=== PATIENT | male | born 1990 | race Caucasian/White ===

== ENCOUNTER → 2018-11-06 18:51 | Outpatient (CLI) | payer BC, SELFPAY ==
--- NOTE | 2018-11-06 18:56 | DI.RAD.S_ITS ---
PROCEDURE: XR ANKLE LT MIN 3V INDICATIONS: Left ankle injury TECHNIQUE: 3 views of the ankle were acquired. COMPARISON: None. FINDINGS: Bones: No fractures or dislocations. Ankle mortise is normally aligned. No suspicious bony lesions. Soft tissues: Lateral soft tissue swelling IMPRESSION: No fracture identified. Lateral soft tissue swelling Dictated by: Zain Pedroza M.D. on 11/06/2018 at 19:16 Approved by: Zain Pedroza M.D. on 11/06/2018 at 19:16
== END ==
PROVIDERS: PCP Ophthalmology; Visit Provider Physician Assistant
DX: S99.912A Unspecified injury of left ankle, initial encounter (principal); M79.89 Other specified soft tissue disorders
CPT/HCPCS: 73610

== ENCOUNTER → 2019-03-05 13:14 | Outpatient (CLI) | payer OTHER, SELFPAY ==
--- NOTE | 2019-03-05 | DI.RAD.S_ITS ---
PROCEDURE: FL SHOULDER INJECTION MR/CT RT INDICATIONS: Superior glenoid labrum lesion of right shoulder, TECHNIQUE: The indications, alternatives, benefits, risks, and complications of the procedure were explained to the patient. Written informed consent was obtained and placed in the chart. The shoulder was examined fluoroscopically and a site for needle placement chosen for entry into the glenohumeral joint from an anterior approach. The skin was prepped and draped in a sterile fashion, and 1% lidocaine infiltrated from skin down to joint capsule. A spinal needle was inserted into the glenohumeral joint, and a small amount of iodinated contrast media injected to confirm intra-articular placement of the needle tip. This was followed by approximately 12 mL dilute solution of a gadolinium containing MR contrast agent. The needle was removed and a dressing was applied. The patient was given postprocedural instructions and sent to the MR suite for MR imaging. FINDINGS: A single fluoroscopic spot image demonstrates intra-articular location of injected iodinated contrast. IMPRESSION: Successful fluoroscopically guided administration of dilute Gadolinium solution into the shoulder joint for MR arthrogram. Dictated by: Zain Pedroza M.D. on 03/05/2019 at 15:37 Approved by: Zain Pedroza M.D. on 03/05/2019 at 15:37
--- NOTE | 2019-03-05 | DI.MRI.S_ITS ---
PROCEDURE: MR SHOULDER RT W CON INDICATIONS: Superior glenoid labrum lesion of right shoulder, Right shoulder pain TECHNIQUE: After the administration of 12 mL of dilute intra-articular Gadolinium contrast, oblique coronal T1 and T2 spin echo with fat saturation, oblique sagittal T1 spin echo with and without fat saturation, oblique sagittal T2 fast spin echo with fat saturation, axial T1 spin echo with fat saturation through the shoulder. COMPARISON: Outside Film, MR, MR SHOULDER RIGHT WITHOUT CONTRAST, 05/30/2018, 10:00. Outside Film, MR, MR SHOULDER RIGHT WITHOUT CONTRAST, 10/02/2018, 9:11. FINDINGS: Image quality: Excellent. Rotator cuff: Low grade bursal sided partial thickness tear of the supraspinatus and infraspinatus tendon, probably less than 50% of tendon thickness. The subscapularis and teres minor tendons appear grossly intact. No atrophy of the rotator cuff musculature although there is mild fatty infiltration of the supraspinatus and infraspinatus muscles. Bones and bursae: No bone marrow contusions or fractures. Moderate acromioclavicular joint degeneration. The acromion demonstrates conventional anatomy, without an os acromiale. Capsule and soft tissues: There is mild surface irregularity of the superior labrum and posterior labrum, which probably postoperative in nature, related to prior debridement. Previously seen small posterior para-labral cyst is no longer visualized. No definite intra-substance gadolinium signal intensity within labrum to suggest recurrent labral tear. The long head of the biceps tendon demonstrates normal location and morphology. The rotator interval appears normal, without fibrosis. The coracohumeral ligament is of normal thickness. No intra-articular bodies. IMPRESSION: Mild surface irregularity involving the superior and posterior labrum which is thought to be postsurgical in nature. No definite intrasubstance gadolinium signal intensity to suggest recurrent labral tear. Low-grade bursal sided partial-thickness tear of the supraspinatus and infraspinatus tendons. Of note, this appears more conspicuous/progressed since 10/02/18. Dictated by: Zain Pedroza M.D. on 03/05/2019 at 15:16 Approved by: Zain Pedroza M.D. on 03/05/2019 at 15:33
== END ==
PROVIDERS: PCP Ophthalmology; Visit Provider Orthopaedic Surgery
DX: S43.431A Superior glenoid labrum lesion of right shoulder, initial encounter (principal); M75.111 Incomplete rotator cuff tear or rupture of right shoulder, not specified as traumatic; M25.511 Pain in right shoulder
CPT/HCPCS: 23350; 73222; 77002

== ENCOUNTER 2019-06-09 15:30 | Emergency (ER) | payer BC, SELFPAY ==
[2019-06-09 15:50] VITALS: BP 183/124; PULSE 92; RESP 18; TEMP 37.2; O2SAT 98; BMI 39.9
[2019-06-09] MEDS: ONDANSETRON 4 MG ODT SL ×2 (16:05→18:03)
[2019-06-09 16:37] LABS: Add Manual Diff / Slide Review NO; Basophils Absolute Auto 0 /uL (0-100); Eosinophils Absolute Auto 200 /uL (0-450); Eosinophils Percent Auto 4.2 % (2-4); Hematocrit 45.2 % (41-53); Hemoglobin 16.1 g/dL (13.5-17.5); Lymphocytes Absolute Auto 1700 /uL (1100-4500); Lymphocytes Percent Auto 34.5 % (25-40); Mean Corpuscular HGB Conc 35.6 % (30-36); Mean Corpuscular Hemoglobin 32.1 PG (26-34); Mean Corpuscular Volume 90.3 fL (80-100); Monocytes Absolute Auto 300 /uL (0-900); Monocytes Percent Auto 6.9 % (3-14); Neutrophils Absolute Auto 2600 /uL (1500-7000); Neutrophils Percent Auto 53.4 % (50-75); Platelet Count 262 X10^3/uL (150-400); Red Blood Cell Count 5.01 X10^6/uL (4.5-5.9); Red Cell Distribution Width 13.1 % (11.6-14.8); White Blood Cell Count 4.9 X10^3/uL (4.5-11.0)
[2019-06-09 16:56] LABS: Alanine Aminotransferase 124 IU/L (21-72); Albumin 4.1 g/dL (3.5-5.0); Albumin Globulin Ratio 1.3 (1.0-2.8); Alkaline Phosphatase 59 U/L (38-126); Aspartate Aminotransferase 54 IU/L (17-59); BUN Creatinine Ratio 12.5 (6-22); Bilirubin Total 0.4 mg/dL (0.2-1.3); Blood Urea Nitrogen 10 mg/dL (9-20); Carbon Dioxide 23 mmol/L (22-32); Chloride 106 mmol/L (98-107); Estimated Glomerular Filt Rate > 60.0 mL/min (>60); Globulin 3.2 g/dL (1.7-4.1); Glucose 104 mg/dL (70-100); HEMOLYSIS 25 (0-50); Potassium 3.6 mmol/L (3.4-5.1); Sodium 139 mmol/L (137-145); Total Protein 7.3 g/dL (6.3-8.2)
[2019-06-09] MEDS: KETOROLAC 60 MG/2 ML VIAL IM (17:56)
[2019-06-09] MEDS: CLINDAMYCIN 150 MG CAPSULE 300 MG PO (18:09)
[2019-06-09] MEDS: HYDROCODONE/ACET 5/325 TABLET 1 TAB PO (18:09)
[2019-06-09] MEDS: ONDANSETRON 4 MG ODT PREPACK 1 BOTTLE MISC (19:14)
[2019-06-09] MEDS: KETOROLAC 10MG PREPACK 1 BOTTLE MISC (19:15)
[2019-06-09] MEDS: HYDROCODONE/ACET 5/325 PREPACK 1 BOTTLE MISC (19:15)
[2019-06-09 19:20] VITALS: BP 164/105; PULSE 79; RESP 16; O2SAT 99
--- NOTE | 2019-06-09 20:14 | ED_ITS ---
HPI - Dental/Oral <GUTIERREZ Mar - Last Filed: 06/09/19 20:25> General Chief complaint: Dental/Oral Stated complaint: Tooth Abcess getting worse and spreading, headache Time Seen by Provider: 06/09/19 17:23 Source: patient Mode of arrival: Ambulatory Limitations: no limitations History of Present Illness HPI Narrative: The patient is a 29-year-old male current smoker with history of hypertension who presents for chief complaint of not improving dental abscess. He has been on amoxicillin twice a day since Monday. He denies any fevers. He states that the taste in pain is making him nauseous. He has not followed up with primary care provider. He states he amoxicillin was given to him at an urgent care. He has taken Motrin this morning for the pain and is gargling of hydrogen peroxide. Related Data Previous Rx's Medication Instructions Recorded cyclobenzaprine 10 mg tablet 10 mg PO TID PRN #60 tab 10/04/18 losartan 25 mg tablet 25 mg PO DAILY #90 tab 11/06/18 clindamycin HCl 300 mg PO QID #40 cap 06/09/19 hydrocodone-acetaminophen [[place]] 1 tab PO Q4-6H PRN #5 tab 06/09/19 ketorolac 10 mg PO TID PRN #20 tab 06/09/19 ondansetron 4 mg PO Q6H PRN #20 tab 06/09/19 Allergies Allergy/AdvReac Type Severity Reaction Status Date / Time Iodinated Contrast- Oral and Allergy Mild Verified 11/06/18 20:18 IV Dye Review of Systems <KARLOS Mar - Last Filed: 06/09/19 20:25> Review of Systems Narrative: GENERAL: Denies chills, fatigue, malaise, fever, sweats. HEENT: See HPI RESPIRATORY: Denies dyspnea, cough, wheezing, hemoptysis, sputum. CARDIOVASCULAR: Denies chest pain, palpitations, orthopnea, edema, GASTROINTESTINAL: See HPI : Denies dysuria, frequency, incontinence, hematuria, urinary retention. MUSCULOSKELETAL: denies weakness, joint pain, or bony pain SKIN: Denies rash, skin lesions, or other NEUROLOGIC: Denies weakness, headache, numbness, change in speech, confusion, seizures, incoordination. PSYCHIATRIC: No concerning psychosocial issues. 12 point review of systems is negative except for those stated above PFSH <GUTIERREZ Mar - Last Filed: 06/09/19 20:25> Social History Smoking Status: Current every day smoker Social History Smoking Status: Current every day smoker Exam <GUTIERREZ Mar - Last Filed: 06/09/19 20:25> Narrative Exam Narrative: GENERAL: This is a well-nourished, well-developed patient, appears uncomfortable HEAD: Atraumatic. Normocephalic. No temporal or scalp tenderness. EYES: Pupils equal round and reactive. Extraocular motions intact. No scleral icterus. No injection or drainage. ENT: Poor dentition noted. Erythema noted coming from broken right upper molar. No palpable abscess. Nose without bleeding, purulent drainage or septal hematoma. Throat without erythema, tonsillar hypertrophy or exudate. Uvula midline. Airway patent. NECK: Trachea midline. No JVD or lymphadenopathy. Supple, nontender, no meningeal signs. CARDIOVASCULAR: Regular rate and rhythm without murmurs, gallops, or rubs. RESPIRATORY: Clear to auscultation. Breath sounds equal bilaterally. No wheezes, rales, or rhonchi. No cough. No increased respiratory effort. No accessory muscle use. GASTROINTESTINAL: Abdomen soft, non-tender, nondistended. No hepato- splenomegaly, or palpable masses. No guarding. Active bowel sounds all 4 quadrants. EXTREMITIES: No clubbing, cyanosis, or edema. No joint tenderness, effusion, or edema noted. BACK: Nontender without deformity or crepitance. No flank tenderness. NEURO: AOx3. SKIN: No rash or erythema. No erythema or palpable abscess on face. Initial Vital Signs Initial Vital Signs: Vital Signs Temperature 98.9 F 06/09/19 15:50 Pulse Rate 92 H 06/09/19 15:50 Respiratory Rate 18 06/09/19 15:50 Blood Pressure 183/124 H 06/09/19 15:50 Pulse Oximetry 98 06/09/19 15:50 <Fredy Smith DO - Last Filed: 06/10/19 20:00> Initial Vital Signs Initial Vital Signs: Vital Signs Temperature 98.9 F 06/09/19 15:50 Pulse Rate 92 H 06/09/19 15:50 Respiratory Rate 18 06/09/19 15:50 Blood Pressure 183/124 H 06/09/19 15:50 Pulse Oximetry 98 06/09/19 15:50 Course <Denisejessenia ParedesMITCHEL bajwaP-BC - Last Filed: 06/09/19 20:25> Orders Ordered: Discontinued Medications Hydrocodone Bitart/Acetaminophen ([place] 5/325) 1 tab PO NOW ONE Stop: 06/09/19 17:35 Last Admin: 06/09/19 18:09 Dose: 1 tab Documented by: CÉSAR Hydrocodone Bitart/Acetaminophen (Vicodin Prepack) 1 bottle MISC SEEINSTR ONE Stop: 06/09/19 18:41 Last Admin: 06/09/19 19:15 Dose: 1 bottle Documented by: CÉSAR Clindamycin HCl (Cleocin) 300 mg PO NOW ONE Stop: 06/09/19 17:35 Last Admin: 06/09/19 18:09 Dose: 300 mg Documented by: CÉSAR Ketorolac Tromethamine (Toradol) 60 mg IM NOW ONE Stop: 06/09/19 17:35 Last Admin: 06/09/19 17:56 Dose: 60 mg Documented by: CÉSAR Ketorolac Tromethamine (Toradol 10mg Prepack) 1 bottle MISC SEEINSTR ONE Stop: 06/09/19 18:41 Last Admin: 06/09/19 19:15 Dose: 1 bottle Documented by: CÉSAR Ondansetron HCl (Zofran Odt) 4 mg SL NOW ONE Stop: 06/09/19 16:03 Last Admin: 06/09/19 16:05 Dose: 4 mg Documented by: ODELL Ondansetron HCl (Zofran Odt) 4 mg SL NOW ONE Stop: 06/09/19 17:59 Last Admin: 06/09/19 18:03 Dose: 4 mg Documented by: CÉSAR Ondansetron HCl (Zofran Odt Prepack) 1 bottle MISC SEEINSTR ONE Stop: 06/09/19 18:41 Last Admin: 06/09/19 19:14 Dose: 1 bottle Documented by: CÉSAR Vital Signs Vital signs: Vital Signs - 8 hr 06/09/19 15:50 06/09/19 19:20 Temperature 98.9 F Pulse Rate 92 H 79 Respiratory Rate 18 16 Blood Pressure 183/124 H Blood Pressure [Right Arm] 164/105 H Pulse Oximetry 98 99 <Fredy Smith, DO - Last Filed: 06/10/19 20:00> Orders Ordered: Discontinued Medications Hydrocodone Bitart/Acetaminophen ([place] 5/325) 1 tab PO NOW ONE Stop: 06/09/19 17:35 Last Admin: 06/09/19 18:09 Dose: 1 tab Documented by: CÉSAR Hydrocodone Bitart/Acetaminophen (Vicodin Prepack) 1 bottle MISC SEEINSTR ONE Stop: 06/09/19 18:41 Last Admin: 06/09/19 19:15 Dose: 1 bottle Documented by: CÉSAR Clindamycin HCl (Cleocin) 300 mg PO NOW ONE Stop: 06/09/19 17:35 Last Admin: 06/09/19 18:09 Dose: 300 mg Documented by: CÉSAR Ketorolac Tromethamine (Toradol) 60 mg IM NOW ONE Stop: 06/09/19 17:35 Last Admin: 06/09/19 17:56 Dose: 60 mg Documented by: CÉSAR Ketorolac Tromethamine (Toradol 10mg Prepack) 1 bottle MISC SEEINSTR ONE Stop: 06/09/19 18:41 Last Admin: 06/09/19 19:15 Dose: 1 bottle Documented by: CÉSAR Ondansetron HCl (Zofran Odt) 4 mg SL NOW ONE Stop: 06/09/19 16:03 Last Admin: 06/09/19 16:05 Dose: 4 mg Documented by: ODELL Ondansetron HCl (Zofran Odt) 4 mg SL NOW ONE Stop: 06/09/19 17:59 Last Admin: 06/09/19 18:03 Dose: 4 mg Documented by: CÉSAR Ondansetron HCl (Zofran Odt Prepack) 1 bottle MISC SEEINSTR ONE Stop: 06/09/19 18:41 Last Admin: 06/09/19 19:14 Dose: 1 bottle Documented by: CÉSAR Vital Signs Vital signs: Vital Signs - 8 hr 06/09/19 15:50 06/09/19 19:20 Temperature 98.9 F Pulse Rate 92 H 79 Respiratory Rate 18 16 Blood Pressure 183/124 H Blood Pressure [Right Arm] 164/105 H Pulse Oximetry 98 99 MDM - Dental/Oral <Denise YousifMITCHELP- - Last Filed: 06/09/19 20:25> Lab Data Result diagrams: 06/09/19 16:10 06/09/19 16:10 Labs: Lab Results 06/09/19 06/09/19 Range/Units 16:10 16:10 WBC 4.9 (4.5-11.0) X10^3/uL RBC 5.01 (4.5-5.9) X10^6/uL Hgb 16.1 (13.5-17.5) g/dL Hct 45.2 (41-53) % MCV 90.3 (80-100) fL MCH 32.1 (26-34) PG MCHC 35.6 (30-36) % RDW 13.1 (11.6-14.8) % Plt Count 262 (150-400) X10^3/uL Neut % (Auto) 53.4 (50-75) % Lymph % (Auto) 34.5 (25-40) % Atkinson % (Auto) 6.9 (3-14) % Eos % (Auto) 4.2 H (2-4) % Baso % (Auto) 1.0 (0-2) % Neut # (Auto) 2600 (5680-8961) /uL Lymph # (Auto) 1700 (3344-7192) /uL Atkinson # (Auto) 300 (0-900) /uL Eos # (Auto) 200 (0-450) /uL Baso # (Auto) 0 (0-100) /uL Sodium 139 (137-145) mmol/L Potassium 3.6 (3.4-5.1) mmol/L Chloride 106 (98-107) mmol/L Carbon Dioxide 23 (22-32) mmol/L BUN 10 (9-20) mg/dL Creatinine 0.80 (0.66-1.25) mg/dL Estimated GFR > 60.0 (>60) mL/min BUN/Creatinine Ratio 12.5 (6-22) Glucose 104 H (70-100) mg/dL Calcium 9.0 (8.4-10.2) mg/dL Total Bilirubin 0.4 (0.2-1.3) mg/dL AST 54 (17-59) IU/L ALT 124 H (21-72) IU/L Alkaline Phosphatase 59 (38-126) U/L Total Protein 7.3 (6.3-8.2) g/dL Albumin 4.1 (3.5-5.0) g/dL Globulin 3.2 (1.7-4.1) g/dL Albumin/Globulin Ratio 1.3 (1.0-2.8) [facility] Narrative Medical decision making narrative: The patient is a 29-year-old male who presents with a chief complaint of a dental abscess that is not improving with amoxicillin. His exam correlates. He has no leukocytosis on labs, is afebrile and has no apparent signs of systemic illness. He was treated with Zofran in the emergency department. I did elect to switch him to clindamycin and given p rescription of of Toradol, with strict instructions to not combine with Motrin Aleve or any other NSAIDs. Discussed use of [place] for pain. Discussed constipation and sedation. Encouraged the patient to follow up with PCP or dentist. Encouraged follow-up with dentist as soon as possible. Patient has no questions or concerns upon discharge. Discussed going back to the ER for fever, signs of systemic illness. Patient has no questions or concerns upon discharge and states understanding of return precautions as well as follow-up care. <Fredy Smith DO - Last Filed: 06/10/19 20:00> Lab Data Labs: Lab Results 06/09/19 06/09/19 Range/Units 16:10 16:10 WBC 4.9 (4.5-11.0) X10^3/uL RBC 5.01 (4.5-5.9) X10^6/uL Hgb 16.1 (13.5-17.5) g/dL Hct 45.2 (41-53) % MCV 90.3 (80-100) fL MCH 32.1 (26-34) PG MCHC 35.6 (30-36) % RDW 13.1 (11.6-14.8) % Plt Count 262 (150-400) X10^3/uL Neut % (Auto) 53.4 (50-75) % Lymph % (Auto) 34.5 (25-40) % Atkinson % (Auto) 6.9 (3-14) % Eos % (Auto) 4.2 H (2-4) % Baso % (Auto) 1.0 (0-2) % Neut # (Auto) 2600 (8704-7093) /uL Lymph # (Auto) 1700 (5558-7645) /uL Atkinson # (Auto) 300 (0-900) /uL Eos # (Auto) 200 (0-450) /uL Baso # (Auto) 0 (0-100) /uL Sodium 139 (137-145) mmol/L Potassium 3.6 (3.4-5.1) mmol/L Chloride 106 (98-107) mmol/L Carbon Dioxide 23 (22-32) mmol/L BUN 10 (9-20) mg/dL Creatinine 0.80 (0.66-1.25) mg/dL Estimated GFR > 60.0 (>60) mL/min BUN/Creatinine Ratio 12.5 (6-22) Glucose 104 H (70-100) mg/dL Calcium 9.0 (8.4-10.2) mg/dL Total Bilirubin 0.4 (0.2-1.3) mg/dL AST 54 (17-59) IU/L ALT 124 H (21-72) IU/L Alkaline Phosphatase 59 (38-126) U/L Total Protein 7.3 (6.3-8.2) g/dL Albumin 4.1 (3.5-5.0) g/dL Globulin 3.2 (1.7-4.1) g/dL Albumin/Globulin Ratio 1.3 (1.0-2.8) Discharge Plan Departure Patient Disposition: Home Clinical Impression: Abscess, dental Discharge Date/Time: 06/09/19 19:21 Instructions: Tooth Abscess Activity Restrictions/Additional Instructions: High have started you on another antibiotic for your dental infection. Do not combine the ketorolac with any other NSAIDs such as Aleve or Motrin. Be aware that [place] can be constipating and sedating. Please follow up with a dentist as soon as possible. I have given you a work note in case it is needed. Please come back to emergency department for any acute concerns such as high fever or inability keep down fluids Prescriptions: New ketorolac 10 mg tablet 10 mg PO TID PRN (Reason: pain) Qty: 20 RF: 0 hydrocodone-acetaminophen [[place]] 5-325 mg tablet 1 tab PO Q4-6H PRN (Reason: pain) Qty: 5 RF: 0 clindamycin HCl 300 mg capsule 300 mg PO QID Qty: 40 RF: 0 ondansetron 4 mg tablet,disintegrating 4 mg PO Q6H PRN (Reason: nausea and vomiting) Qty: 20 RF: 0 No Action losartan 25 mg tablet 25 mg PO DAILY Qty: 90 RF: 0 cyclobenzaprine 10 mg tablet 10 mg PO TID PRN (Reason: muscle spasm) Qty: 60 RF: 1 Referrals: David Garzon [Primary Care Provider] - Stand Alone Forms: Work Release Note
== END 2019-06-09 19:21 | disposition home or self-care (01) ==
PROVIDERS: Emergency Provider Nurse Practitioner Family; PCP Ophthalmology
DX: K04.7 Periapical abscess without sinus (principal)
CPT/HCPCS: 36415; 80053; 85025; 96372; 99282; 99284; J1885

== ENCOUNTER 2019-09-16 14:47 | Emergency (ER) | payer BC, SELFPAY ==
[2019-09-16 15:02] VITALS: BP 164/108; PULSE 102; RESP 20; TEMP 36.2; O2SAT 99; BMI 36.6
[2019-09-16] MEDS: IBUPROFEN 400 MG TABLET 800 MG PO (15:11)
[2019-09-16 17:26] VITALS: TEMP 36.3
[2019-09-16 17:58] LABS: Add Manual Diff / Slide Review NO; Basophils Absolute Auto 0 /uL (0-100); Basophils Percent Auto 0.8 % (0-2); Eosinophils Absolute Auto 200 /uL (0-450); Eosinophils Percent Auto 4.9 % (2-4); Hematocrit 49.7 % (41-53); Hemoglobin 17.5 g/dL (13.5-17.5); Lymphocytes Absolute Auto 1500 /uL (1100-4500); Mean Corpuscular HGB Conc 35.2 % (30-36); Mean Corpuscular Hemoglobin 31.9 PG (26-34); Mean Corpuscular Volume 90.4 fL (80-100); Monocytes Absolute Auto 300 /uL (0-900); Monocytes Percent Auto 8.8 % (3-14); Neutrophils Absolute Auto 1900 /uL (1500-7000); Neutrophils Percent Auto 47.5 % (50-75); Platelet Count 272 X10^3/uL (150-400); Red Blood Cell Count 5.49 X10^6/uL (4.5-5.9); Red Cell Distribution Width 13.1 % (11.6-14.8); White Blood Cell Count 3.9 X10^3/uL (4.5-11.0)
[2019-09-16 18:04] LABS: Prothrombin Time 11.9 SECONDS (10.1-12.7)
[2019-09-16] MEDS: SODIUM CHLORIDE 0.9% 1,000 ML 1000 ML IV (18:04)
[2019-09-16 18:07] LABS: PTT Partial Thromboplastin Tim 30 SECONDS (26.4-36.2)
[2019-09-16 18:11] LABS: Alanine Aminotransferase 122 IU/L (<50); Albumin 4.7 g/dL (3.5-5.0); Albumin Globulin Ratio 1.4 (1.0-2.8); Alkaline Phosphatase 51 U/L (38-126); Aspartate Aminotransferase 67 IU/L (17-59); BUN Creatinine Ratio 15.6 (6-22); Bilirubin Total 0.9 mg/dL (0.2-1.3); Blood Urea Nitrogen 14 mg/dL (9-20); Calcium 9.5 mg/dL (8.4-10.2); Carbon Dioxide 25 mmol/L (22-32); Chloride 103 mmol/L (98-107); Estimated Glomerular Filt Rate > 60.0 mL/min (>60); Globulin 3.4 g/dL (1.7-4.1); Glucose 92 mg/dL (70-100); HEMOLYSIS < 15 (0-50); Lipase 93 U/L (23-300); Potassium 3.9 mmol/L (3.4-5.1); Sodium 140 mmol/L (137-145); Total Protein 8.1 g/dL (6.3-8.2)
[2019-09-16 18:12] LABS: Lactate (Lactic Acid) 1.4 mmol/L (0.7-2.1)
--- NOTE | 2019-09-16 18:14 | ED_ITS ---
HPI - Fever <GISSELL Rodriguez - Last Filed: 09/16/19 21:11> General Chief Complaint: Fever Stated Complaint: Influenza B, neck pain, no energy Time Seen by Provider: 09/16/19 17:18 Source: patient Mode of arrival: Ambulatory Limitations: no limitations History of Present Illness HPI Narrative: 29-year-old male presents to the emergency department complaining of ongoing neck pain and headache for 2 days, he also reports 2 episodes of dark tarry stools. He states he was recently diagnosed with influenza B before and has been drinking fluids and taking ibuprofen to help with the symptoms. He went to establish care with his primary care provider today and was directed to go to the ER due to symptoms. He states he has had nausea and vomiting when he was initially diagnosed with influenza but that has subsided over the past few days. Patient states he has intermittent epigastric pain, he was diagnosed with elevated liver enzymes when he was initially in the ER and t old to not take any more Tylenol at this time. Patient also reports he has recently stopping his high blood pressure medication custody thinks that it was not doing anything. However, he saw his primary care provider today and was started on losartan which he has not taken at this time. Related Data Home Medications Medication Instructions Recorded Confirmed lisinopril 10 mg PO DAILY 09/16/19 09/16/19 Previous Rx's Medication Instructions Recorded ondansetron 4 mg PO Q6H PRN #20 tab 06/09/19 omeprazole 20 mg PO BID 14 Days #28 cap 09/16/19 Allergies Allergy/AdvReac Type Severity Reaction Status Date / Time Iodinated Contrast Media Allergy Mild Verified 09/16/19 15:07 [Iodinated Contrast- Oral and IV Dye] Review of Systems <GISSELL Rodriguez - Last Filed: 09/16/19 21:11> Review of Systems Narrative: REVIEW OF SYSTEMS: GENERAL: Denies fever, chills, malaise, or wt. loss. HENT: No head trauma, sore throat, or dysphagia. EYES: No loss of vision, double vision, eye pain, or irritation. NECK: Reports neck pain, see HPI. CARDIOVASCULAR: No chest pain, palpitations, or orthopnea. RESPIRATORY: No shortness of breath or cough. GASTROINTESTINAL: Complains of 2 dark tarry stools, see HPI. GENITOURINARY: No flank pain, urinary incontinence, hesitancy, frequency, or dysuria. MUSCULOSKELETAL: No pain, weakness, or trauma. INTEGUMENTARY: No rash, lesions, or pruritus. NEURO: No numbness, tingling, memory loss, confusion, or headaches. PSYCH: No behavior or mood changes. Patient History <GISSELL Rodriguez - Last Filed: 09/16/19 21:11> Social History Smoking Status: Former smoker Smoking Status: Former smoker alcohol intake frequency: a few times a week Substance Use Type: does not use Exam <GISSELL Rodriguez - Last Filed: 09/16/19 21:11> Initial Vital Signs Initial Vital Signs: Vital Signs Temperature 97.1 F L 09/16/19 15:02 Pulse Rate 102 H 09/16/19 15:02 Respiratory Rate 20 09/16/19 15:02 Blood Pressure 164/108 H 09/16/19 15:02 Pulse Oximetry 99 09/16/19 15:02 PHYSICAL EXAMINATION: GENERAL: Well groomed, alert, and cooperative. Answers questions promptly and appropriately. Vital signs noted. HENT: Normocephalic, atraumatic. Hearing intact. Oral mucosa is pink and moist. Oropharynx without erythema. EYES: PERRLA, EOMIs, Conjunctiva pink, sclera white, no periorbital swelling. NECK: Tenderness to palpation of left sternal caught little mastoid, no spinal tenderness or deformities. Full range of motion of neck including full ext ension, flexion, and rotation without pain. CARDIOVASCULAR: S1 and S2 sounds normal. Regular rate and rhythm, no murmurs, clicks, or bruits. No pedal edema. RESPIRATORY: Normal respiratory rate, trachea midline, airway patent. No stridor, nasal flaring or accessory muscle use. Lungs are clear in all tello without wheeze, rhonchi, or crackles. GASTROINTESTINAL: Bowel sounds normoactive. Abdomen is soft, slight epigastric tenderness. No organomegaly, no palpable masses. RECTAL: No hemorrhoids palpated, guaiac positive for occult blood. GENITALURINARY: No flank tenderness. MUSCULOSKELETAL: Normal gait and coordination. Equal tone and mass bilaterally. EXTREMITIES: CMS intact, no pedal edema. SKIN: Warm, dry, soft, appropriate color for ethnicity. No lesions, rashes, or wounds. NEURO: Alert and Oriented X 3. Good coordination. No ataxia, or sensory deficits, or cognitive issues. PSYCH: Appropriate affect and mood. <Fredy Smith DO - Last Filed: 09/17/19 02:26> Initial Vital Signs Initial Vital Signs: Vital Signs Temperature 97.1 F L 09/16/19 15:02 Pulse Rate 102 H 09/16/19 15:02 Respiratory Rate 20 09/16/19 15:02 Blood Pressure 164/108 H 09/16/19 15:02 Pulse Oximetry 99 09/16/19 15:02 Course <GISSELL Rodriguez - Last Filed: 09/16/19 21:11> Course Course Narrative: Patient was given fluids and pantoprazole in the emergency department. He reported moderate improvement in symptoms. Patient was given ibuprofen in triage before further evaluation of GI bleeding. Orders Ordered: ED Orders 09/16/19 17:45 Complete Blood Count AUTO DIFF Stat Comprehensive Metabolic Panel Stat Lactate (Lactic Acid) Stat Lipase Stat Partial Thromboplastin Time Stat Procalcitonin Stat Prothrombin Time INR Stat 09/16/19 18:17 Blood Culture Stat 09/16/19 18:37 XR chest 1V Stat Discontinued Medications Acetaminophen (Tylenol) 975 mg PO NOW ONE Stop: 09/16/19 15:08 Sodium Chloride (Normal Saline 0.9%) 1,000 mls @ 1,000 mls/hr IV BOLUS ONE Stop: 09/16/19 18:24 Last Infusion: 09/16/19 20:00 Dose: 0 mls/hr Documented by: Admin: 09/16/19 18:04 Dose: 1,000 mls/hr Documented by: CÉSAR Ibuprofen (Advil) 800 mg PO NOW ONE Stop: 09/16/19 15:08 Last Admin: 09/16/19 15:11 Dose: 800 mg Documented by: JENNIFER Ondansetron HCl (Zofran) 4 mg IV NOW ONE Stop: 09/16/19 17:26 Last Admin: 09/16/19 20:30 Dose: Not Given Documented by: JENNIFER Pantoprazole Sodium (Protonix) 40 mg IV NOW ONE Stop: 09/16/19 18:30 Last Admin: 09/16/19 19:54 Dose: 40 mg Documented by: CÉSAR Consultations Consultation #1: Patient was staffed with Dr. Smith. Vital Signs Vital signs: Vital Signs - 8 hr 09/16/19 19:12 09/16/19 20:03 Pulse Rate 72 72 Respiratory Rate 18 20 Blood Pressure 168/116 H Blood Pressure [Right Arm] 160/113 H Pulse Oximetry 99 100 <Fredy Smith DO - Last Filed: 09/17/19 02:26> Orders Ordered: ED Orders 09/16/19 17:45 Complete Blood Count AUTO DIFF Stat Comprehensive Metabolic Panel Stat Lactate (Lactic Acid) Stat Lipase Stat Partial Thromboplastin Time Stat Procalcitonin Stat Prothrombin Time INR Stat 09/16/19 18:17 Blood Culture Stat 09/16/19 18:37 XR chest 1V Stat Discontinued Medications Acetaminophen (Tylenol) 975 mg PO NOW ONE Stop: 09/16/19 15:08 Sodium Chloride (Normal Saline 0.9%) 1,000 mls @ 1,000 mls/hr IV BOLUS ONE Stop: 09/16/19 18:24 Last Infusion: 09/16/19 20:00 Dose: 0 mls/hr Documented by: Admin: 09/16/19 18:04 Dose: 1,000 mls/hr Documented by: CÉSAR Ibuprofen (Advil) 800 mg PO NOW ONE Stop: 09/16/19 15:08 Last Admin: 09/16/19 15:11 Dose: 800 mg Documented by: JENNIFER Ondansetron HCl (Zofran) 4 mg IV NOW ONE Stop: 09/16/19 17:26 Last Admin: 09/16/19 20:30 Dose: Not Given Documented by: JENNIFER Pantoprazole Sodium (Protonix) 40 mg IV NOW ONE Stop: 09/16/19 18:30 Last Admin: 09/16/19 19:54 Dose: 40 mg Documented by: CÉSAR Vital Signs Vital signs: Vital Signs - 8 hr 09/16/19 19:12 09/16/19 20:03 Pulse Rate 72 72 Respiratory Rate 18 20 Blood Pressure 168/116 H Blood Pressure [Right Arm] 160/113 H Pulse Oximetry 99 100 MDM - Fever <GISSELL Rodriguez - Last Filed: 09/16/19 21:11> Medical Records Attestation: I reviewed the patient's medical records. Lab Data Attestation: I reviewed the patient's lab results. Result diagrams: 09/16/19 17:45 09/16/19 17:45 Labs: Lab Results 09/16/19 09/16/19 09/16/19 Range/Units 17:45 17:45 17:45 WBC 3.9 L (4.5-11.0) X10^3/uL RBC 5.49 (4.5-5.9) X10^6/uL Hgb 17.5 (13.5-17.5) g/dL Hct 49.7 (41-53) % MCV 90.4 (80-100) fL MCH 31.9 (26-34) PG MCHC 35.2 (30-36) % RDW 13.1 (11.6-14.8) % Plt Count 272 (150-400) X10^3/uL Neut % (Auto) 47.5 L (50-75) % Lymph % (Auto) 38.0 (25-40) % [place] % (Auto) 8.8 (3-14) % Eos % (Auto) 4.9 H (2-4) % Baso % (Auto) 0.8 (0-2) % Neut # (Auto) 1900 (8957-2221) /uL Lymph # (Auto) 1500 (4227-0498) /uL [place]hin # (Auto) 300 (0-900) /uL Eos # (Auto) 200 (0-450) /uL Baso # (Auto) 0 (0-100) /uL PT 11.9 (10.1-12.7) SECONDS INR 1.0 (0.9-1.3) APTT 30 (26.4-36.2) SECONDS Sodium (137-145) mmol/L Potassium (3.4-5.1) mmol/L Chloride (98-107) mmol/L Carbon Dioxide (22-32) mmol/L BUN (9-20) mg/dL Creatinine (0.66-1.25) mg/dL Estimated GFR (>60) mL/min BUN/Creatinine Ratio (6-22) Glucose (70-100) mg/dL Lactate (0.7-2.1) mmol/L Calcium (8.4-10.2) mg/dL Total Bilirubin (0.2-1.3) mg/dL AST (17-59) IU/L ALT (<50) IU/L Alkaline Phosphatase (38-126) U/L Total Protein (6.3-8.2) g/dL Albumin (3.5-5.0) g/dL Globulin (1.7-4.1) g/dL Albumin/Globulin Ratio (1.0-2.8) Lipase (23-300) U/L Procalcitonin 0.06 (<0.5) ng/mL 09/16/19 09/16/19 Range/Units 17:45 17:45 WBC (4.5-11.0) X10^3/uL RBC (4.5-5.9) X10^6/uL Hgb (13.5-17.5) g/dL Hct (41-53) % MCV (80-100) fL MCH (26-34) PG MCHC (30-36) % RDW (11.6-14.8) % Plt Count (150-400) X10^3/uL Neut % (Auto) (50-75) % Lymph % (Auto) (25-40) % [place]hin % (Auto) (3-14) % Eos % (Auto) (2-4) % Baso % (Auto) (0-2) % Neut # (Auto) (3321-7314) /uL Lymph # (Auto) (7025-3391) /uL [place]hin # (Auto) (0-900) /uL Eos # (Auto) (0-450) /uL Baso # (Auto) (0-100) /uL PT (10.1-12.7) SECONDS INR (0.9-1.3) APTT (26.4-36.2) SECONDS Sodium 140 (137-145) mmol/L Potassium 3.9 (3.4-5.1) mmol/L Chloride 103 (98-107) mmol/L Carbon Dioxide 25 (22-32) mmol/L BUN 14 (9-20) mg/dL Creatinine 0.90 (0.66-1.25) mg/dL Estimated GFR > 60.0 (>60) mL/min BUN/Creatinine Ratio 15.6 (6-22) Glucose 92 (70-100) mg/dL Lactate 1.4 (0.7-2.1) mmol/L Calcium 9.5 (8.4-10.2) mg/dL Total Bilirubin 0.9 (0.2-1.3) mg/dL AST 67 H (17-59) IU/L ALT 122 H (<50) IU/L Alkaline Phosphatase 51 (38-126) U/L Total Protein 8.1 (6.3-8.2) g/dL Albumin 4.7 (3.5-5.0) g/dL Globulin 3.4 (1.7-4.1) g/dL Albumin/Globulin Ratio 1.4 (1.0-2.8) Lipase 93 (23-300) U/L Procalcitonin (<0.5) ng/mL Imaging Data Chest x-ray: Radiologist's Impression: [address] [address] XRay Report Signed Patient: Garth Dean MMR#: [id number] : 1990Acct:[id number] Age/Sex: 29 / MDate of Service: 09/16/19 Loc: ED Accession Number: [id number] Procedure: XR chest 1V Ordering Provider: Cecy Jones PROCEDURE: XR CHEST 1V INDICATIONS: Cough TECHNIQUE: One view of the chest was acquired. COMPARISON: [facility] , CHEST 2 VIEW, 05/06/2010, 13:23. FINDINGS: Surgical changes and devices: None. Lungs and pleura: Lungs are clear. No pleural effusions or pneumothorax. Mediastinum: Mediastinal contours appear normal. Heart size is normal. Bones and chest wall: No suspicious bony lesions. Overlying soft tissues appear unremarkable. IMPRESSION: No acute cardiopulmonary abnormality. Dictated by: Sylvain Ford M.D. on 09/16/2019 at 19:07 Approved by: Sylvain Ford M.D. on 09/16/2019 at 19:08 [facility] Narrative Medical decision making narrative: 29-year-old male presents to the emergency department for 2 episodes of black tarry stools and neck pain. I suspect his pain is most likely caused by a neck strain due to tenderness of the sternocl eidomastoid. Less likely meningitis due to lack of systemic symptoms such as fever or tachycardia and patient exhibits full range of motion at without pain. Differential for GI bleed includes NSAID induced gastric ulcer from recent increased consumption of Toradol and reports of epigastric pain (most likely), primary gastric ulcer, duodenal ulcer, IBD, or internal hemorrhoids. Less likely esophageal varices due to lack of significant alcohol history or significant liver dysfunction. Patient remained hemodynamically stable throughout the emergency department stay. Labs are non remarkable for anemia. Patient was encouraged to follow up with his primary care provider for discussion about further testing such as an endoscopy and/or colonoscopy. He was given strict return precautions for new or worsening symptoms such as increased bloody stools, syncope, chest pain, shortness of breath. <Fredy Smith DO - Last Filed: 09/17/19 02:26> Lab Data Labs: Lab Results 09/16/19 09/16/19 09/16/19 Range/Units 17:45 17:45 17:45 WBC 3.9 L (4.5-11.0) X10^3/uL RBC 5.49 (4.5-5.9) X10^6/uL Hgb 17.5 (13.5-17.5) g/dL Hct 49.7 (41-53) % MCV 90.4 (80-100) fL MCH 31.9 (26-34) PG MCHC 35.2 (30-36) % RDW 13.1 (11.6-14.8) % Plt Count 272 (150-400) X10^3/uL Neut % (Auto) 47.5 L (50-75) % Lymph % (Auto) 38.0 (25-40) % Da[place]hin % (Auto) 8.8 (3-14) % Eos % (Auto) 4.9 H (2-4) % Baso % (Auto) 0.8 (0-2) % Neut # (Auto) 1900 (4911-6586) /uL Lymph # (Auto) 1500 (9155-0502) /uL Da[place]hin # (Auto) 300 (0-900) /uL Eos # (Auto) 200 (0-450) /uL Baso # (Auto) 0 (0-100) /uL PT 11.9 (10.1-12.7) SECONDS INR 1.0 (0.9-1.3) APTT 30 (26.4-36.2) SECONDS Sodium (137-145) mmol/L Potassium (3.4-5.1) mmol/L Chloride (98-107) mmol/L Carbon Dioxide (22-32) mmol/L BUN (9-20) mg/dL Creatinine (0.66-1.25) mg/dL Estimated GFR (>60) mL/min BUN/Creatinine Ratio (6-22) Glucose (70-100) mg/dL Lactate (0.7-2.1) mmol/L Calcium (8.4-10.2) mg/dL Total Bilirubin (0.2-1.3) mg/dL AST (17-59) IU/L ALT (<50) IU/L Alkaline Phosphatase (38-126) U/L Total Protein (6.3-8.2) g/dL Albumin (3.5-5.0) g/dL Globulin (1.7-4.1) g/dL Albumin/Globulin Ratio (1.0-2.8) Lipase (23-300) U/L Procalcitonin 0.06 (<0.5) ng/mL 09/16/19 09/16/19 Range/Units 17:45 17:45 WBC (4.5-11.0) X10^3/uL RBC (4.5-5.9) X10^6/uL Hgb (13.5-17.5) g/dL Hct (41-53) % MCV (80-100) fL MCH (26-34) PG MCHC (30-36) % RDW (11.6-14.8) % Plt Count (150-400) X10^3/uL Neut % (Auto) (50-75) % Lymph % (Auto) (25-40) % Da[place]hin % (Auto) (3-14) % Eos % (Auto) (2-4) % Baso % (Auto) (0-2) % Neut # (Auto) (2999-8119) /uL Lymph # (Auto) (3621-4665) /uL Da[place]hin # (Auto) (0-900) /uL Eos # (Auto) (0-450) /uL Baso # (Auto) (0-100) /uL PT (10.1-12.7) SECONDS INR (0.9-1.3) APTT (26.4-36.2) SECONDS Sodium 140 (137-145) mmol/L Potassium 3.9 (3.4-5.1) mmol/L Chloride 103 (98-107) mmol/L Carbon Dioxide 25 (22-32) mmol/L BUN 14 (9-20) mg/dL Creatinine 0.90 (0.66-1.25) mg/dL Estimated GFR > 60.0 (>60) mL/min BUN/Creatinine Ratio 15.6 (6-22) Glucose 92 (70-100) mg/dL Lactate 1.4 (0.7-2.1) mmol/L Calcium 9.5 (8.4-10.2) mg/dL Total Bilirubin 0.9 (0.2-1.3) mg/dL AST 67 H (17-59) IU/L ALT 122 H (<50) IU/L Alkaline Phosphatase 51 (38-126) U/L Total Protein 8.1 (6.3-8.2) g/dL Albumin 4.7 (3.5-5.0) g/dL Globulin 3.4 (1.7-4.1) g/dL Albumin/Globulin Ratio 1.4 (1.0-2.8) Lipase 93 (23-300) U/L Procalcitonin (<0.5) ng/mL Discharge Plan Departure Patient Disposition: Home Clinical Impression: Blood in stool Discharge Date/Time: 09/16/19 20:06 Instructions: Gastrointestinal Bleeding Activity Restrictions/Additional Instructions: Thank you for entrusting me with your care today. As discussed, your chest x- rays negative for any concerning finding such as pneumonia. Your labs show sli ghtly elevated liver enzymes as before please decrease alcohol intake and do not take any Tylenol. I also suggest refraining from taking NSAIDs such as ibuprofen or Toradol due to your black tarry stools. I prescribed you a proton pump inhibitor medication to help with black tarry stools, please take this for 2 weeks. Please follow up with your primary care provider in 1-2 weeks, or give them a call tomorrow as I suggest you schedule a colonoscopy and/or endoscopy. Additionally, please discuss your high blood pressure with her primary care provider. Return emergency department for new or worsening symptoms such as high fevers, uncontrollable vomiting, worsening blood in your stool, syncope, chest pain, other concerns. Prescriptions: New omeprazole 20 mg capsule,delayed release(DR/EC) 20 mg PO BID 14 Days Qty: 28 RF: 0 No Action ondansetron 4 mg tablet,disintegrating 4 mg PO Q6H PRN (Reason: nausea and vomiting) Qty: 20 RF: 0 lisinopril 10 mg Tablet 10 mg PO DAILY RF: 0 Referrals: David Garzon [Primary Care Provider] -
[2019-09-16 18:19] VITALS: BP 166/110; PULSE 75; RESP 17; O2SAT 96
[2019-09-16 18:25] LABS: Procalcitonin 0.06 ng/mL (<0.5)
--- NOTE | 2019-09-16 18:37 | DI.RAD.S_ITS ---
PROCEDURE: XR CHEST 1V INDICATIONS: Cough TECHNIQUE: One view of the chest was acquired. COMPARISON: [facility], , CHEST 2 VIEW, 05/06/2010, 13:23. FINDINGS: Surgical changes and devices: None. Lungs and pleura: Lungs are clear. No pleural effusions or pneumothorax. Mediastinum: Mediastinal contours appear normal. Heart size is normal. Bones and chest wall: No suspicious bony lesions. Overlying soft tissues appear unremarkable. IMPRESSION: No acute cardiopulmonary abnormality. Dictated by: Sylvain Ford M.D. on 09/16/2019 at 19:07 Approved by: Sylvain Ford M.D. on 09/16/2019 at 19:08
[2019-09-16 19:12] VITALS: BP 160/113; PULSE 72; RESP 18; O2SAT 99
[2019-09-16] MEDS: PANTOPRAZOLE 40 MG VIAL IV (19:54)
[2019-09-16 20:03] VITALS: BP 168/116; PULSE 72; RESP 20; O2SAT 100
== END 2019-09-16 20:06 | disposition home or self-care (01) ==
PROVIDERS: Emergency Provider Nurse Practitioner; PCP Ophthalmology
DX: K92.1 Melena (principal); M54.2 Cervicalgia; R51 Headache
CPT/HCPCS: 36415; 71045; 80053; 83605; 83690; 84145; 85025; 85610; 85730; 87040; 96361; 96374; 99284; C9113

== ENCOUNTER → 2019-10-08 06:46 | Outpatient (CLI) | payer BC, SELFPAY ==
--- NOTE | 2019-10-08 | DI.US.S_ITS ---
PROCEDURE: US ABDOMEN COMPLETE INDICATIONS: EPIGASTRIC PAIN TECHNIQUE: Real-time scanning was performed of the abdominal and retroperitoneal organs, with image documentation. COMPARISON: None. FINDINGS: Liver: Liver is normal in size and homogeneous in echotexture. Gallbladder: The gallbladder wall measures 2.2 mm in diameter. No stones, sludge, pericholecystic fluid, or sonographic García sign. Biliary ducts: Intrahepatic bile ducts are non-dilated. Extrahepatic bile duct caliber measures 5 mm. Normal is 6-7 mm or less in diameter, or 10 mm or less post-cholecystectomy. Pancreas: Visualized portions of the pancreas are sonographically normal. Spleen: Spleen is normal in size and homogeneous in echotexture. Kidneys: Kidneys are normal in size and echotexture. Right kidney measures 11.7 cm long; left kidney measures 9.8 cm long. No hydronephrosis or nephrolithiasis. No solid masses. Aorta: Visualized aorta is normal in caliber at less than 3 cm. Iliacs: Proximal common iliac arteries are normal in caliber at less than 2.5 cm. IVC: Intrahepatic inferior vena cava is patent. Miscellaneous: No free abdominal fluid. IMPRESSION: 1. No cholelithiasis or findings to suggest choledocholithiasis or acute cholecystitis. Dictated by: Kelsey Ross M.D. on 10/08/2019 at 13:21 Approved by: Kelsey Ross M.D. on 10/08/2019 at 14:08
== END ==
PROVIDERS: PCP Physician Assistant Medical; Visit Provider Physician Assistant
DX: R10.13 Epigastric pain (principal); R11.2 Nausea with vomiting, unspecified
CPT/HCPCS: 76700

== ENCOUNTER 2020-07-28 20:10 | Observation (INO) | payer SELFPAY ==
[2020-07-28] VITALS (36 sets, daily range): BP systolic 98–221; BP diastolic 55–140; PULSE 75–118; RESP 12–40; TEMP 37.1; O2SAT 93–98; BMI 25.1
--- NOTE | 2020-07-28 20:26 | DI.RAD.S_ITS ---
PROCEDURE: XR CHEST 1V INDICATIONS: chest pain TECHNIQUE: One view of the chest was acquired. COMPARISON: [facility], CR, XR CHEST 1V, 09/16/2019, 18:42. FINDINGS: Surgical changes and devices: None. Lungs and pleura: Lungs are clear. No pleural effusions or pneumothorax. Mediastinum: Mediastinal contours appear normal. Heart size is mildly enlarged. Bones and chest wall: No suspicious bony lesions. Overlying soft tissues appear unremarkable. IMPRESSION: No acute pulmonary process. Dictated by: Smitha Qiu M.D. on 07/28/2020 at 20:45 Approved by: Smitha Qiu M.D. on 07/28/2020 at 20:45
[2020-07-28 20:35] LABS: Add Manual Diff / Slide Review NO; Basophils Absolute Auto 100 /uL (0-100); Basophils Percent Auto 1.1 % (0-2); Eosinophils Absolute Auto 400 /uL (0-450); Hematocrit 44.8 % (41-53); Hemoglobin 15.7 g/dL (13.5-17.5); Lymphocytes Absolute Auto 2800 /uL (1100-4500); Lymphocytes Percent Auto 40.1 % (25-40); Mean Corpuscular HGB Conc 35.1 % (30-36); Mean Corpuscular Volume 91.1 fL (80-100); Monocytes Absolute Auto 500 /uL (0-900); Monocytes Percent Auto 7.4 % (3-14); Neutrophils Absolute Auto 3300 /uL (1500-7000); Neutrophils Percent Auto 46.4 % (50-75); Platelet Count 248 X10^3/uL (150-400); Red Blood Cell Count 4.92 X10^6/uL (4.5-5.9); Red Cell Distribution Width 13.4 % (11.6-14.8); White Blood Cell Count 7.1 X10^3/uL (4.5-11.0)
[2020-07-28 20:42] LABS: INR 0.9 (0.9-1.3); Prothrombin Time 10.7 SECONDS (10.1-12.7)
[2020-07-28 20:44] LABS: PTT Partial Thromboplastin Tim 33 SECONDS (26.4-36.2)
[2020-07-28 20:46] LABS: Alanine Aminotransferase 124 IU/L (<50); Albumin 4.4 g/dL (3.5-5.0); Albumin Globulin Ratio 1.3 (1.0-2.8); Alkaline Phosphatase 62 U/L (38-126); Aspartate Aminotransferase 46 IU/L (17-59); BUN Creatinine Ratio 12.7 (6-22); Bilirubin Total 0.5 mg/dL (0.2-1.3); Blood Urea Nitrogen 10 mg/dL (9-20); Calcium 9.5 mg/dL (8.4-10.2); Carbon Dioxide 26 mmol/L (22-32); Chloride 106 mmol/L (98-107); Creatine Kinase 109 U/L (55-170); Estimated Glomerular Filt Rate > 60.0 mL/min (>60); Globulin 3.4 g/dL (1.7-4.1); Glucose 130 mg/dL (70-100); HEMOLYSIS 43 (0-50); Lipase 69 U/L (23-300); Potassium 3.9 mmol/L (3.4-5.1); Sodium 137 mmol/L (137-145); Total Protein 7.8 g/dL (6.3-8.2)
[2020-07-28] MEDS: NICARDIPINE 25 MG in SODIUM CHLORIDE 0.9% 240 ML 50 ML IV (20:52)
[2020-07-28 20:57] LABS: Troponin I < 0.012 ng/mL (0.01-0.034)
[2020-07-28] MEDS: NITROGLYCERIN 50 MG/250 ML INFUS..BTL IV (20:57)
[2020-07-28 21:01] LABS: COVID19 -Nasal RAPID Negative (Negative)
[2020-07-28 21:01] LABS: CKMB % Relative Index 0.5 % (1.5-5.0); Creatine Kinase MB 0.55 ng/mL (<2.37)
[2020-07-28] MEDS: LORazepam 0.5 MG TABLET PO (21:40)
[2020-07-28] MEDS: MORPHINE 4 MG/ML INJ IV ×2 (21:40→23:56)
[2020-07-28] MEDS: ACETAMINOPHEN 325 MG TABLET 975 MG PO (22:00)
--- NOTE | 2020-07-28 22:00 | PC.NURSE ---
Pt has an extremely severe headache d/t the nitro. MD made aware. Will decrease Nitro to 3ml/hr and give Tylenol
--- NOTE | 2020-07-28 22:20 | PC.NURSE ---
Pt started to become diaphoretic, nauseous, and light headed. Pt's bp had dropped from 168/70 to 98/55 in 10 min. Both drips were stopped. MD called to bedside. Zofran given. 500ml NS fluid bolus given per MD verbal order. Pt's BP quickly recovered to 116 systolic. Pt began to feel much better. Headache improving.
[2020-07-28] MEDS: ONDANSETRON 4 MG/2 ML INJ 8 MG IV (22:22)
--- NOTE | 2020-07-28 22:23 | DI.CT.S_ITS ---
PROCEDURE: CT HEAD/BRAIN WO CON INDICATIONS: hypertensive crisis TECHNIQUE: Noncontrast 4.5 mm thick angled axial sections acquired from the foramen magnum to the vertex, with coronal and sagittal reformats. For radiation dose reduction, the following was used: automated exposure control, adjustment of mA and/or kV according to patient size. COMPARISON: [facility], CT, CT HEAD WITHOUT CONTRAST, 08/31/2017, 14:32. FINDINGS: Image quality: Excellent. CSF spaces: Basal cisterns are patent. No extra-axial fluid collections. Ventricles are normal in size and shape. Brain: No midline shift. No intracranial masses or hemorrhage. Aiken-white matter interface is normal. Skull and face: Calvarium and visualized facial bones are intact, without suspicious lesions. Sinuses: Visualized sinuses and mastoids are clear. IMPRESSION: No acute intracranial disease process. Dictated by: Kirti Jara MD, PhD on 07/29/2020 at 7:08 Approved by: Kirti Jara MD, PhD on 07/29/2020 at 7:09
--- NOTE | 2020-07-28 22:29 | ED.CHESTPAIN ---
HPI - Chest Pain General Chief Complaint: Chest Pain Stated Complaint: high blood pressure, chest pains Time Seen by Provider: 07/28/20 20:32 History of Present Illness HPI narrative: 30-year-old gentleman with a history hypertension had been on 10 mg of lisinopril previously but lost his job lost his insurance and was unable to get medications refilled. Has not been taking medications for the last 4-6 months. He presents complaining of chest pain, tightness pressure and headache along with significant exertional dyspnea worsening over the last week. He has been checking his blood pressure the last week and noticed that it has been significantly elevated with diastolics well above 100. Initial blood pressure in the emergency room was 221/134. Related Data Home Medications Medication Instructions Recorded Confirmed lisinopril 10 mg PO DAILY 09/16/19 09/16/19 Previous Rx's Medication Instructions Recorded ondansetron 4 mg PO Q6H PRN #20 tab 06/09/19 Allergies Allergy/AdvReac Type Severity Reaction Status Date / Time Iodinated Contrast Media Allergy Mild Verified 09/16/19 15:07 [Iodinated Contrast- Oral and IV Dye] Review of Systems Review of Systems Narrative: Pertinent positive and negative findings as per HPI Remainder of review of systems is otherwise unremarkable for Constitutional: Fevers, chills, weakness ENT: No sore throat, neck pain, ear pain GI: Nausea, vomiting, diarrhea, : Dysuria, hematuria, flank pain MS: Muscle weakness, numbness, joint swelling or warmth Skin: Rashes, nonhealing lesions Neuro: Syncope, dizziness, tingling Patient History Medical History HTN (hypertension) (Chronic) Social History Smoking Status: Former smoker Smoking Status: Former smoker alcohol intake frequency: a few times a week Substance Use Type: does not use Exam Narrative Exam Narrative: General: Healthy appearing, moderate distress secondary to headache. Able to give a complete and coherent history. Well-nourished well-developed HEENT: Moist mucous membranes, normal sclera with reactive pupils, Neck: No JVD, supple Respiratory: Lungs are clear to auscultation, no wheezing no rales no rhonchi. Full and symmetrical air movement Cardiac: Regular rate and rhythm no murmurs no bruits Abdomen: Soft nontender good bowel tones, no flank pain Skin: Warm and dry, no rashes Neurologic: Grossly neurologically intact with no obvious asymmetries or abnormalities Extremities: No trauma, well perfused Psych: Cooperative, appropriate insight and affect Initial Vital Signs Initial Vital Signs: Vital Signs Temperature 98.8 F 07/28/20 20:23 Pulse Rate 91 H 07/28/20 20:23 Respiratory Rate 20 07/28/20 20:23 Blood Pressure 221/134 H 07/28/20 20:23 Pulse Oximetry 97 07/28/20 20:23 Course Orders Ordered: ED Orders 07/28/20 20:24 Complete Blood Count AUTO DIFF Stat Comprehensive Metabolic Panel Stat Lipase Stat Partial Thromboplastin Time Stat Prothrombin Time INR Stat Troponin & CK Cardiac Panel Stat 07/28/20 20:25 COVID19 Stat 07/28/20 20:26 XR chest 1V Stat 07/28/20 22:23 CT head/brain wo con Stat EKG-12 Lead Stat 07/28/20 23:55 Troponin I Stat Nitroglycerin (Nitroglycerin) 50 mg in 250 mls @ 1.5 mls/hr IV TITRATE PALOMO; Protocol Last Titration: 07/28/20 22:20 Dose: 0 mcg/min, 0 mls/hr Documented by: Titration: 07/28/20 22:00 Dose: 10 mcg/min, 3 mls/hr Documented by: Titration: 07/28/20 21:35 Dose: 15 mcg/min, 4.5 mls/hr Documented by: Titration: 07/28/20 21:24 Dose: 10 mcg/min, 3 mls/hr Documented by: Admin: 07/28/20 20:57 Dose: 5 mcg/min, 1.5 mls/hr Documented by: TALISHA Nicardipine HCl 25 mg/ Sodium (Chloride) 250 mls @ 50 mls/hr IV TITRATE PALOMO; Protocol Last Titration: 07/29/20 01:00 Dose: 0 mg/hr, 0 mls/hr Documented by: Titration: 07/28/20 22:37 Dose: 5 mg/hr, 50 mls/hr Documented by: Titration: 07/28/20 22:20 Dose: 0 mg/hr, 0 mls/hr Documented by: Titration: 07/28/20 22:01 Dose: 15 mg/hr, 150 mls/hr Documented by: Titration: 07/28/20 21:48 Dose: 12.5 mg/hr, 125 mls/hr Documented by: Titration: 07/28/20 21:35 Dose: 10 mg/hr, 100 mls/hr Documented by: Titration: 07/28/20 21:23 Dose: 7.5 mg/hr, 75 mls/hr Documented by: Admin: 07/28/20 20:52 Dose: 5 mg/hr, 50 mls/hr Documented by: TALISHA Discontinued Medications Acetaminophen (Tylenol) 975 mg PO NOW ONE Stop: 07/28/20 21:57 Last Admin: 07/28/20 22:00 Dose: 975 mg Documented by: TALISHA Amlodipine Besylate (Norvasc) 5 mg PO NOW ONE Stop: 07/28/20 23:42 Last Admin: 07/28/20 23:56 Dose: 5 mg Documented by: TALISHA Ondansetron HCl 8 mg/ Sodium (Chloride) 54 mls @ 216 mls/hr IV NOW ONE Stop: 07/28/20 22:03 Last Admin: 07/28/20 23:04 Dose: Not Given Documented by: TALISHA Ondansetron HCl 8 mg/ Sodium (Chloride) 54 mls @ 216 mls/hr IV NOW ONE Stop: 07/28/20 22:12 Last Admin: 07/28/20 22:16 Dose: Not Given Documented by: TALISHA Lisinopril (Zestril) 10 mg PO NOW ONE Stop: 07/28/20 23:42 Last Admin: 07/28/20 23:56 Dose: 10 mg Documented by: TALISHA Lorazepam (Ativan) 0.5 mg PO NOW ONE Stop: 07/28/20 21:34 Last Admin: 07/28/20 21:40 Dose: 0.5 mg Documented by: TALISHA Morphine Sulfate (Morphine) 4 mg IV NOW ONE Stop: 07/28/20 21:34 Last Admin: 07/28/20 21:40 Dose: 4 mg Documented by: TALISHA Morphine Sulfate (Morphine) 4 mg IV NOW ONE Stop: 07/28/20 23:43 Last Admin: 07/28/20 23:56 Dose: 4 mg Documented by: TALISHA Ondansetron HCl (Zofran) 8 mg IV NOW ONE Stop: 07/28/20 22:16 Last Admin: 07/28/20 22:22 Dose: 8 mg Documented by: TALISHA Oxycodone/Acetaminophen (Percocet 5/325) 2 tab PO NOW ONE Stop: 07/29/20 00:51 Last Admin: 07/29/20 01:10 Dose: 2 tab Documented by: TALISHA Vital Signs Vital signs: Vital Signs - 8 hr 07/28/20 20:23 07/28/20 20:30 07/28/20 20:40 Temperature 98.8 F Pulse Rate 91 H 81 81 Respiratory Rate 20 19 24 Blood Pressure 221/134 H 214/138 H 207/128 H Pulse Oximetry 97 97 95 07/28/20 20:52 07/28/20 20:57 07/28/20 21:00 Temperature Pulse Rate 79 82 Respiratory Rate 26 H 19 Blood Pressure 191/129 H 191/129 H 183/130 H Pulse Oximetry 95 94 07/28/20 21:10 07/28/20 21:20 07/28/20 21:25 Temperature Pulse Rate 89 92 H 90 Respiratory Rate 18 15 24 Blood Pressure 194/136 H 210/140 H 190/118 H Pulse Oximetry 95 95 94 07/28/20 21:30 07/28/20 21:35 07/28/20 21:40 Temperature Pulse Rate 95 H 101 H 105 H Respiratory Rate 23 20 19 Blood Pressure 192/95 H 194/102 H 210/107 H Pulse Oximetry 93 93 94 07/28/20 21:45 07/28/20 21:50 07/28/20 21:55 Temperature Pulse Rate 116 H 103 H 116 H Respiratory Rate 19 17 22 Blood Pressure 181/103 H 182/93 H 188/92 H Pulse Oximetry 93 94 93 07/28/20 22:00 07/28/20 22:05 07/28/20 22:11 Temperature Pulse Rate 114 H 118 H 113 H Respiratory Rate 20 23 30 H Blood Pressure 189/88 H 168/70 H 144/61 H Pulse Oximetry 93 93 95 07/28/20 22:15 07/28/20 22:20 07/28/20 22:25 Temperature Pulse Rate 78 78 84 Respiratory Rate 32 H 40 H 28 H Blood Pressure 116/55 L 98/55 L 137/60 Pulse Oximetry 94 07/28/20 22:30 07/28/20 22:35 07/28/20 22:40 Temperature Pulse Rate 86 77 75 Respiratory Rate 15 14 16 Blood Pressure 142/83 H 151/91 H 154/79 H Pulse Oximetry 95 95 94 07/28/20 22:45 07/28/20 23:00 07/28/20 23:01 Temperature Pulse Rate 83 80 82 Respiratory Rate 16 Blood Pressure 150/81 H 163/85 H Pulse Oximetry 98 97 96 07/28/20 23:05 07/28/20 23:10 07/28/20 23:15 Temperature Pulse Rate 84 81 86 Respiratory Rate 12 14 21 Blood Pressure 173/84 H 154/79 H 157/79 H Pulse Oximetry 95 95 95 07/28/20 23:20 07/28/20 23:25 07/28/20 23:30 Temperature Pulse Rate 81 82 83 Respiratory Rate 17 15 22 Blood Pressure 156/76 H 162/78 H 164/72 H Pulse Oximetry 95 95 94 07/28/20 23:35 07/28/20 23:40 07/28/20 23:50 Temperature Pulse Rate 87 81 89 Respiratory Rate 15 13 17 Blood Pressure 167/76 H 166/77 H 166/80 H Pulse Oximetry 95 96 95 07/29/20 00:00 07/29/20 00:10 07/29/20 00:20 Temperature Pulse Rate 83 83 81 Respiratory Rate 17 14 Blood Pressure 161/77 H 161/77 H 164/77 H Pulse Oximetry 95 95 95 07/29/20 00:30 07/29/20 00:40 07/29/20 00:50 Temperature Pulse Rate 76 79 74 Respiratory Rate 17 14 14 Blood Pressure 163/80 H 158/83 H 152/77 H Pulse Oximetry 94 96 94 07/29/20 01:00 07/29/20 01:11 07/29/20 01:20 Temperature Pulse Rate 78 82 73 Respiratory Rate 19 23 17 Blood Pressure 153/73 H 126/56 L 133/61 Pulse Oximetry 94 96 92 07/29/20 01:30 Temperature Pulse Rate 75 Respiratory Rate 17 Blood Pressure 137/67 Pulse Oximetry 95 MDM - Chest Pain Medical Records Data Attestation: I reviewed the patient's medical records. Lab Data Attestation: I reviewed the patient's lab results. Result diagrams: 07/28/20 20:24 07/28/20 20:24 Labs: Lab Results 07/28/20 07/28/20 07/28/20 Range/Units 20:24 20:24 20:24 WBC 7.1 (4.5-11.0) X10^3/uL RBC 4.92 (4.5-5.9) X10^6/uL Hgb 15.7 (13.5-17.5) g/dL Hct 44.8 (41-53) % MCV 91.1 (80-100) fL MCH 32.0 (26-34) PG MCHC 35.1 (30-36) % RDW 13.4 (11.6-14.8) % Plt Count 248 (150-400) X10^3/uL Neut % (Auto) 46.4 L (50-75) % Lymph % (Auto) 40.1 H (25-40) % Menard % (Auto) 7.4 (3-14) % Eos % (Auto) 5.0 H (2-4) % Baso % (Auto) 1.1 (0-2) % Neut # (Auto) 3300 (0772-7572) /uL Lymph # (Auto) 2800 (3130-5282) /uL Menard # (Auto) 500 (0-900) /uL Eos # (Auto) 400 (0-450) /uL Baso # (Auto) 100 (0-100) /uL PT 10.7 (10.1-12.7) SECONDS INR 0.9 (0.9-1.3) APTT 33 D (26.4-36.2) SECONDS Sodium 137 (137-145) mmol/L Potassium 3.9 (3.4-5.1) mmol/L Chloride 106 (98-107) mmol/L Carbon Dioxide 26 (22-32) mmol/L BUN 10 (9-20) mg/dL Creatinine 0.79 (0.66-1.25) mg/dL Estimated GFR > 60.0 (>60) mL/min BUN/Creatinine Ratio 12.7 (6-22) Glucose 130 H (70-100) mg/dL Calcium 9.5 (8.4-10.2) mg/dL Total Bilirubin 0.5 (0.2-1.3) mg/dL AST 46 (17-59) IU/L ALT 124 H (<50) IU/L Alkaline Phosphatase 62 (38-126) U/L Total Creatine Kinase 109 (55-170) U/L CK-MB (CK-2) 0.55 (<2.37) ng/mL CK-MB (CK-2) Rel Index 0.5 L (1.5-5.0) % Troponin I < 0.012 (0.01-0.034) ng/mL Total Protein 7.8 (6.3-8.2) g/dL Albumin 4.4 (3.5-5.0) g/dL Globulin 3.4 (1.7-4.1) g/dL Albumin/Globulin Ratio 1.3 (1.0-2.8) Lipase 69 (23-300) U/L COVID-19 PCR (Negative) 07/28/20 07/28/20 Range/Units 20:25 23:55 WBC (4.5-11.0) X10^3/uL RBC (4.5-5.9) X10^6/uL Hgb (13.5-17.5) g/dL Hct (41-53) % MCV (80-100) fL MCH (26-34) PG MCHC (30-36) % RDW (11.6-14.8) % Plt Count (150-400) X10^3/uL Neut % (Auto) (50-75) % Lymph % (Auto) (25-40) % Menard % (Auto) (3-14) % Eos % (Auto) (2-4) % Baso % (Auto) (0-2) % Neut # (Auto) (0188-8576) /uL Lymph # (Auto) (4377-3043) /uL Menard # (Auto) (0-900) /uL Eos # (Auto) (0-450) /uL Baso # (Auto) (0-100) /uL PT (10.1-12.7) SECONDS INR (0.9-1.3) APTT (26.4-36.2) SECONDS Sodium (137-145) mmol/L Potassium (3.4-5.1) mmol/L Chloride (98-107) mmol/L Carbon Dioxide (22-32) mmol/L BUN (9-20) mg/dL Creatinine (0.66-1.25) mg/dL Estimated GFR (>60) mL/min BUN/Creatinine Ratio (6-22) Glucose (70-100) mg/dL Calcium (8.4-10.2) mg/dL Total Bilirubin (0.2-1.3) mg/dL AST (17-59) IU/L ALT (<50) IU/L Alkaline Phosphatase (38-126) U/L Total Creatine Kinase (55-170) U/L CK-MB (CK-2) (<2.37) ng/mL CK-MB (CK-2) Rel Index (1.5-5.0) % Troponin I < 0.012 (0.01-0.034) ng/mL Total Protein (6.3-8.2) g/dL Albumin (3.5-5.0) g/dL Globulin (1.7-4.1) g/dL Albumin/Globulin Ratio (1.0-2.8) Lipase (23-300) U/L COVID-19 PCR Negative (Negative) Imaging Data Chest x-ray: Radiologist's Impression: FINDINGS: Surgical changes and devices: None. Lungs and pleura: Lungs are clear. No pleural effusions or pneumothorax. Mediastinum: Mediastinal contours appear normal. Heart size is mildly enlarged. Bones and chest wall: No suspicious bony lesions. Overlying soft tissues appear unremarkable. IMPRESSION: No acute pulmonary process. Dictated by: Smitha Qiu M.D. on 07/28/2020 at 20:45 ECG Data Attestation: I personally reviewed and interpreted this ECG as follows: Interpretation: #1 20:15 Sinus rhythm at a rate of 81 Normal axis, normal intervals Nonspecific ST T wave changes #2 22:22 (with near syncopal episode) Sinus rhythm Rate of 78 Normal intervals, normal axis Inverted T-waves laterally, no ST elevation, evolving EKG compared to initial MDM Narrative Medical decision making narrative: 30-year-old gentleman with history of hypertension that have been controlled with 10 mg of lisinopril presents with significantly elevated blood pressure and symptoms worsening for the last month with headache, exertional dyspnea and intermittent chest pain all concern for hypertensive crisis. Initial troponin is unremarkable and initial EKG has only nonspecific ST T wave changes. He started on nicardipine as well as nitroglycerin. Nitroglycerin has given him the severe headache and headache is causing nausea and is weaned off. Nicardipine was titrated up to max of 150 over approximately 2 hours with systolic blood pressures in the 160 range. 1025pm he had some sort of event with acute nausea diaphoresis dramatic hypotension dropping from a blood pressure 160 down to 98/66 pale clammy with slight increased confusion and complaints of worsening headache. EKG is repeated and he has some lateral T-wave changes. Fluid bolus is initiated. Blood pressure is increasing and within 15 minutes is up to 150/81 currently on no drips. Emergent head CT is ordered. ICU beds are available at [facility]. Spoke with heel turner, . Once were able to confirm he is not having an acute stroke or intracranial hemorrhage he would like to hear back from us. 1135pm Case again reviewed with Dr Causey. After discussing the details he recommended a blood pressure goal of 180 rather than 160, adding oral lisinopril as well as oral amlodipine and stopping nicardipine in approximately an hour and re-evaluating. 140am nicardipne off, blood pressure is 144/66. Still with mild dyspnea, chest tightness and headache. Will try Percocet for the headache at this point. Care is reviewed with hospitalist and patient will be admitted for further observation, continued cardiac workup and make sure his neurologic as well as cardiac symptoms has improved as blood pressure is controlled with oral medications. Safe for transfer to the floor. Critical Care Time Critical Care Time Critical Care Time: Yes Total Critical Care Time: 41 Attestation: Critical care time is separate from other billable procedures. This critical care time includes consultation with family and other consulting doctors, review of records, and interpretation of data from labs, EKGs and imaging as well as managements of hypertensive crisis with neuorlogic and cardiovscular compromise. Discharge Plan Departure Patient Disposition: Admitted as Observation Clinical Impression: Hypertensive emergency, Exertional dyspnea Chest pain Qualifiers: Chest pain type: unspecified Qualified Code(s): R07.9 - Chest pain, unspecified Headache Qualifiers: Headache type: unspecified Headache chronicity pattern: acute headache Intractability: not intractable Qualified Code(s): R51.9 - Headache, unspecified Referrals: Palak Villavicencio [Primary Care Provider] -
--- NOTE | 2020-07-28 22:50 | PC.NURSE ---
Pt taken for CT on the monitor and Nicardipine drip. Pt tolerated CT and position changes very well. Pt feeling much better. Will hold Nicardipine at 5mg/hr per MD wishes
[2020-07-28] MEDS: lisinopriL 10 MG TABLET PO (23:56)
[2020-07-28] MEDS: AMLODIPINE 5 MG TABLET PO (23:56)
[2020-07-29] VITALS (18 sets, daily range): BP systolic 115–164; BP diastolic 56–93; PULSE 61–83; RESP 14–23; TEMP 36.2–37.1; O2SAT 92–98; BMI 42.4
[2020-07-29 00:34] LABS: Troponin I < 0.012 ng/mL (0.01-0.034)
[2020-07-29] MEDS: OXYCODONE/ACETAMINOPHEN 5/325 TABLET 2 TAB PO (01:10)
--- NOTE | 2020-07-29 03:20 | PM.HP.1 ---
History of Present Illness History of Present Illness Date Patient Seen: 07/29/20 Time Patient Seen: 03:00 Chief complaint: high blood pressure, chest pains Narrative: Mr. Garth Dean is a 30-year-old male patient with a past medical history hypertension migraines and gastric ulcer who presents to the ER with complaints of chest pain headache and exertional dyspnea. The patient states that he previously been diagnosed with hypertension and was started on lisinopril at 10 mg that was to be increased to 20 mg to which the patient developed the adverse reaction dry cough. Patient has lost his health insurance and could not afford the medications and has been without his medication for a few months.. Additionally the patient has a history of migraine headaches for which take Imitrex and describes having migraine headaches the last few days and severe migraine headache tonight as result nitroglycerin infusion used to control his blood pressure. The patient describes his chest pain as starting 2 days ago and transient located substernal and nonradiating. Today he developed left-sided chest pain towards the lower costal margin and up towards the left shoulder extending around to the back. The pain was progressively worsening and nothing seemed to make it better. Patient denies nausea vomiting, reports photophobia secondary to his migraine and endorses tingling of his lower extremities. He reports no symptoms of fevers or chills has a nasal congestion or sore throat. He has chest pain as described above but denies palpitations. He has exertional dyspnea but no cough wheeze. Denies complaints of abdominal pain and has had no nausea vomiting diarrhea or constipation. He has a history of gastric ulcer but denies hematemesis, hematochezia or melena. On upon arrival to the ER the patient has a temperature of 98.8?, heart rate of 91, blood pressure is 221/134, respirations are 20 and oxygen saturation 97%. Chest x-ray is obtained which finds no acute cardiopulmonary pathology. On laboratory analysis he has white count of 7.1, hemoglobin of 15.7, hematocrit 44.8 and platelets of 248. He has a PT 10.7, INR 0.9 and PTT of 33. His liquids within normal limits and has a BUN of 10 and a creatinine of 0.79. He has a total bilirubin of 0.5, AST 46, ALT of 124 and alkaline phosphatase is 62. Total CK is 109, CK-MB is 0.55 with a CK-MB index is 0.5. His troponin is negative less than 0. 012. The patient was started on nicardipine drip and titrated up with poor blood pressure control prompting the addition of a nitroglycerin infusion. The patient has subsequently developed a severe headache the describes as the worst in his life and his blood pressure dropped into the 90s. Infusions were stopped and the patient was taken urgently for CT scan which showed no bleed. An gum machine filler consult was obtained by the ER physician who recommended restarting patient on lisinopril 10 mg and adding amlodipine 5 mg and discharge home. The patient still remained symptomatic with continued headache and mental clouding and therefore is admitted to the hospitalist service for hypertensive urgency. Patient History Medical History (Updated 07/29/20 @ 03:35 by GISSELL Salazar) Gastric ulcer (Acute) HTN (hypertension) (Chronic) Migraine headache (Acute) Surgical History (Updated 07/29/20 @ 03:35 by GISSELL Salazar) History of shoulder surgery (Acute) Family & Social History Family History (Updated 07/29/20 @ 03:37 by GISSELL Salazar) Father Hypertension Mother History of hysterectomy Grandmother Cancer Grandfather Myocardial infarction Social History: household members none Prior Living Arrangements Apartment/Condo Safety & Behavioral: Feels Safe in Current Yes Environment Been Physically Hurt or No Threatened By a Person Suicidal Ideation Description None Suicide Plan Description No Plan Tobacco & Substance use: Smoking Status Former smoker alcohol intake frequency a few times a week Substance Use Type does not use Meds Home Medications and Allergies Home Medications Medication Instructions Recorded Confirmed Type ondansetron 4 mg PO Q6H PRN #20 tab 06/09/19 09/16/19 Rx lisinopril 10 mg PO DAILY 09/16/19 09/16/19 History Allergies Allergy/AdvReac Type Severity Reaction Status Date / Time Iodinated Contrast Media Allergy Mild Verified 09/16/19 15:07 [Iodinated Contrast- Oral and IV Dye] Review of Systems Review of Systems ROS: Yes All systems reviewed with the patient and are negative except as otherwise documented Exam Vital Signs (past 8 hours): - 07/28/20 20:23 07/28/20 20:30 07/28/20 20:40 Temperature 98.8 F Pulse Rate 91 H 81 81 Respiratory Rate 20 19 24 Blood Pressure 221/134 H 214/138 H 207/128 H Pulse Oximetry 97 97 95 07/28/20 20:52 07/28/20 20:57 07/28/20 21:00 Temperature Pulse Rate 79 82 Respiratory Rate 26 H 19 Blood Pressure 191/129 H 191/129 H 183/130 H Pulse Oximetry 95 94 07/28/20 21:10 07/28/20 21:20 07/28/20 21:25 Temperature Pulse Rate 89 92 H 90 Respiratory Rate 18 15 24 Blood Pressure 194/136 H 210/140 H 190/118 H Pulse Oximetry 95 95 94 07/28/20 21:30 07/28/20 21:35 07/28/20 21:40 Temperature Pulse Rate 95 H 101 H 105 H Respiratory Rate 23 20 19 Blood Pressure 192/95 H 194/102 H 210/107 H Pulse Oximetry 93 93 94 07/28/20 21:45 07/28/20 21:50 07/28/20 21:55 Temperature Pulse Rate 116 H 103 H 116 H Respiratory Rate 19 17 22 Blood Pressure 181/103 H 182/93 H 188/92 H Pulse Oximetry 93 94 93 07/28/20 22:00 07/28/20 22:05 07/28/20 22:11 Temperature Pulse Rate 114 H 118 H 113 H Respiratory Rate 20 23 30 H Blood Pressure 189/88 H 168/70 H 144/61 H Pulse Oximetry 93 93 95 07/28/20 22:15 07/28/20 22:20 07/28/20 22:25 Temperature Pulse Rate 78 78 84 Respiratory Rate 32 H 40 H 28 H Blood Pressure 116/55 L 98/55 L 137/60 Pulse Oximetry 94 07/28/20 22:30 07/28/20 22:35 07/28/20 22:40 Temperature Pulse Rate 86 77 75 Respiratory Rate 15 14 16 Blood Pressure 142/83 H 151/91 H 154/79 H Pulse Oximetry 95 95 94 07/28/20 22:45 07/28/20 23:00 07/28/20 23:01 Temperature Pulse Rate 83 80 82 Respiratory Rate 16 Blood Pressure 150/81 H 163/85 H Pulse Oximetry 98 97 96 07/28/20 23:05 07/28/20 23:10 07/28/20 23:15 Temperature Pulse Rate 84 81 86 Respiratory Rate 12 14 21 Blood Pressure 173/84 H 154/79 H 157/79 H Pulse Oximetry 95 95 95 07/28/20 23:20 07/28/20 23:25 07/28/20 23:30 Temperature Pulse Rate 81 82 83 Respiratory Rate 17 15 22 Blood Pressure 156/76 H 162/78 H 164/72 H Pulse Oximetry 95 95 94 07/28/20 23:35 07/28/20 23:40 07/28/20 23:50 Temperature Pulse Rate 87 81 89 Respiratory Rate 15 13 17 Blood Pressure 167/76 H 166/77 H 166/80 H Pulse Oximetry 95 96 95 07/29/20 00:00 07/29/20 00:10 07/29/20 00:20 Temperature Pulse Rate 83 83 81 Respiratory Rate 17 14 Blood Pressure 161/77 H 161/77 H 164/77 H Pulse Oximetry 95 95 95 07/29/20 00:30 07/29/20 00:40 07/29/20 00:50 Temperature Pulse Rate 76 79 74 Respiratory Rate 17 14 14 Blood Pressure 163/80 H 158/83 H 152/77 H Pulse Oximetry 94 96 94 07/29/20 01:00 07/29/20 01:11 07/29/20 01:20 Temperature Pulse Rate 78 82 73 Respiratory Rate 19 23 17 Blood Pressure 153/73 H 126/56 L 133/61 Pulse Oximetry 94 96 92 07/29/20 01:30 07/29/20 01:40 07/29/20 01:50 Temperature Pulse Rate 75 69 67 Respiratory Rate 17 19 16 Blood Pressure 137/67 141/66 H 132/63 Pulse Oximetry 95 95 94 07/29/20 02:00 07/29/20 02:01 07/29/20 02:29 Temperature 97.2 F L Pulse Rate 71 75 67 Respiratory Rate 21 20 18 Blood Pressure 156/80 H 154/88 H Pulse Oximetry 97 96 98 Oxygen Delivery Method Room Air Oxygen Flow Rate 0 Narrative Exam Narrative: GENERAL APPEARANCE: well developed, well nourished, in no acute distress. HEENT: Normocephalic, photophobia, PERRLA, conjunctiva clear, EOMs intact without nystagmus, no rhinorrhea or epistaxis, mucous membranes are dry and pink. NECK/THYROID: No nuchal rigidity, intact ROM, no JVD, no carotid bruit, no thyromegaly, trachea midline. LYMPH NODES: no cervical or supraclavicular lymphadenopathy. SKIN: [place], warm and dry, no visible lesions, rashes HEART: regular rate and rhythm, S1-S2, no murmur, no rubs or gallops, brisk capillary refill, no edema LUNGS: clear to auscultation bilaterally, no coarseness crackles or wheezing, no cough present CHEST: Symmetrical movement, no accessory muscle use, good tidal volume. ABDOMEN: Soft, no distention, no abdominal tenderness, no guarding or peritoneal signs, no organomegaly, no flank or suprapubic tenderness, active bowel tones. EXTREMITIES: moves all extremities, strength is 5/5 and symmetrical, no deformities or joint effusions. NEUROLOGIC: AAO x3, photophobia, cranial nerves II-XII grossly intact, sensation intact to light touch, hearing grossly normal to speech. PSYCH: Interactive and cooperative, linear thought process, appropriate with stable behavior Objective Labs Result Diagrams: 07/28/20 20:24 07/28/20 20:24 Labs: Laboratory Results - last 24 hr 07/28/20 07/28/20 07/28/20 20:24 20:24 20:24 WBC 7.1 RBC 4.92 Hgb 15.7 Hct 44.8 MCV 91.1 MCH 32.0 MCHC 35.1 RDW 13.4 Plt Count 248 Neut % (Auto) 46.4 L Lymph % (Auto) 40.1 H [place] % (Auto) 7.4 Eos % (Auto) 5.0 H Baso % (Auto) 1.1 Neut # (Auto) 3300 Lymph # (Auto) 2800 [place] # (Auto) 500 Eos # (Auto) 400 Baso # (Auto) 100 PT 10.7 INR 0.9 APTT 33 D Sodium 137 Potassium 3.9 Chloride 106 Carbon Dioxide 26 BUN 10 Creatinine 0.79 Estimated GFR > 60.0 BUN/Creatinine Ratio 12.7 Glucose 130 H Calcium 9.5 Total Bilirubin 0.5 AST 46 ALT 124 H Alkaline Phosphatase 62 Total Creatine Kinase 109 CK-MB (CK-2) 0.55 CK-MB (CK-2) Rel Index 0.5 L Troponin I < 0.012 Total Protein 7.8 Albumin 4.4 Globulin 3.4 Albumin/Globulin Ratio 1.3 Lipase 69 COVID-19 PCR 07/28/20 07/28/20 20:25 23:55 WBC RBC Hgb Hct MCV MCH MCHC RDW Plt Count Neut % (Auto) Lymph % (Auto) [place] % (Auto) Eos % (Auto) Baso % (Auto) Neut # (Auto) Lymph # (Auto) [place] # (Auto) Eos # (Auto) Baso # (Auto) PT INR APTT Sodium Potassium Chloride Carbon Dioxide BUN Creatinine Estimated GFR BUN/Creatinine Ratio Glucose Calcium Total Bilirubin AST ALT Alkaline Phosphatase Total Creatine Kinase CK-MB (CK-2) CK-MB (CK-2) Rel Index Troponin I < 0.012 Total Protein Albumin Globulin Albumin/Globulin Ratio Lipase COVID-19 PCR Negative Assessment & Plan Assessment & Plan narrative: S a 30-year-old male patient with past medical history significant for hypertension migraines gastric ulcer who presents to the ER with hypertensive urgency with complaints of chest pain headaches and dizziness and is found to have a blood pressure 221/134. The patient has been off medication due to losing health insurance and cost. 1. Hypertensive urgency, acute, present on admission, active -history of hypertension off medication for several months. Had been taking lisinopril 10 mg daily to which she developed a dry cough. The dose was to be increased to 20 mg daily. -upon arrival to the ER the patient blood pressure 221/134 with associated complaints of headaches dizziness, exertional dyspnea and chest pain. -patient initially treated in the ER with nicardipine infusion with minimal improvement and had nitroglycerin infusion added. Patient sustained a precipitous drop in his blood pressure and drips were stopped. -lisinopril 10 mg and amlodipine 5 mg administered orally with reduction in blood pressure to 1 30s to 150s. -ordered losartan 25 mg daily and amlodipine 5 mg daily. -will closely follow blood pressures every 2 hours. 2. Chest pain, acute, present on admission, active. -the patient reports chest pain intermittently over the last few days described as substernal nonradiating nonpleuritic pressure-like sensation. Today chest pain was left upper chest radiate the back and left lower chest. -patient does not have a personal history of cardiac disease however he endorses a family history of hypertension heart disease and heart attacks. -12 lead EKG reveals a normal sinus rhythm at a rate of 81 without ectopy, ST or T-wave changes and no infarct. -total CK is 109, CK-MB is 0.55 with index of 0 5, troponin is negative at less than 0.012. -chest pain is resolved with reduction blood pressure, will continue to observe and on telemetry. 3. Migraine headache, acute, present on admission, active -history of migraine headaches for which patient had been taking Imitrex. The patient loss insurance and could not afford medication. -patient describes headache tonight is his typical migrainous headache only much more severe in intensity following administration of nitroglycerin. -a CT of the head was obtained due to the sudden onset and severity of headache which found no acute findings and no bleed. -with blood pressure now controlled an inpatient setting will administer sumatriptan 6 mg subcutaneously. -ordered follow-up of sumatriptan 20 mg nasally every 2 hours as needed for migraine headache. VTE prophylaxis: Enoxaparin IV fluid: Saline lock Diet: Heart healthy low-sodium Code status: Full code, patient designates Betina Negron to be his surrogate decision maker The patient lost his health insurance and could not afford his medications resulting in escalating blood pressure to the point of hypertensive urgency and admission the hospital. Requested social work consult for community resources for medications. The patient is admitted to the hospital due to the severity of his presenting systems and is continuing symptoms following blood pressure management. The patient is admitted as observation with expected length of stay to be less than 2 midnights. COVID-19 Result date/Date tested (Pos, Neg/Pending): 07/29/20 Scores [facility] [place] coma scale eye opening: Spontaneous [place] coma scale verbal response: Orientated [place] coma scale motor response: Obey commands [place] coma scale total score: 15
[2020-07-29] MEDS: SUMAtriptan 6 MG/0.5 ML VIAL SUBCUT (03:25)
[2020-07-29] MEDS: NICOTINE 7 MG PATCH TOP (03:46)
[2020-07-29 06:40] LABS: Add Manual Diff / Slide Review NO; Basophils Absolute Auto 100 /uL (0-100); Basophils Percent Auto 0.8 % (0-2); Eosinophils Absolute Auto 300 /uL (0-450); Eosinophils Percent Auto 4.5 % (2-4); Hematocrit 41.9 % (41-53); Hemoglobin 14.5 g/dL (13.5-17.5); Lymphocytes Absolute Auto 3000 /uL (1100-4500); Lymphocytes Percent Auto 39.9 % (25-40); Mean Corpuscular HGB Conc 34.6 % (30-36); Mean Corpuscular Volume 92.4 fL (80-100); Monocytes Absolute Auto 400 /uL (0-900); Monocytes Percent Auto 5.5 % (3-14); Neutrophils Absolute Auto 3700 /uL (1500-7000); Neutrophils Percent Auto 49.3 % (50-75); Platelet Count 206 X10^3/uL (150-400); Red Blood Cell Count 4.53 X10^6/uL (4.5-5.9); Red Cell Distribution Width 13.3 % (11.6-14.8); White Blood Cell Count 7.5 X10^3/uL (4.5-11.0)
[2020-07-29 06:46] LABS: Alanine Aminotransferase 101 IU/L (<50); Albumin 3.8 g/dL (3.5-5.0); Albumin Globulin Ratio 1.3 (1.0-2.8); Alkaline Phosphatase 45 U/L (38-126); Aspartate Aminotransferase 37 IU/L (17-59); BUN Creatinine Ratio 11.6 (6-22); Bilirubin Total 0.4 mg/dL (0.2-1.3); Blood Urea Nitrogen 10 mg/dL (9-20); Calcium 8.8 mg/dL (8.4-10.2); Carbon Dioxide 28 mmol/L (22-32); Chloride 105 mmol/L (98-107); Estimated Glomerular Filt Rate > 60.0 mL/min (>60); Globulin 2.9 g/dL (1.7-4.1); Glucose 102 mg/dL (70-100); HEMOLYSIS < 15 (0-50); Potassium 4.1 mmol/L (3.4-5.1); Sodium 136 mmol/L (137-145); Total Protein 6.7 g/dL (6.3-8.2)
--- NOTE | 2020-07-29 06:59 | PC.NURSE ---
Patient admitted to room 231 via WC, able to slowly ambulate into BR, c/o headache and weakness, denies chest pain or dizziness, SR, initial BP 154/88, then trended downward, but remained stable, see vital trends. Medicated with 6mg SQ Imatex, Nicotine patch placed. 2-3 second apnea noted while sleeping, placed on 2L NC. 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
--- NOTE | 2020-07-29 08:16 | PM.DS.1 ---
History of Present Illness History of Present Illness Date Patient Seen: 07/29/20 Time Patient Seen: 08:16 Chief complaint: high blood pressure, chest pains Narrative: As per GISSELL Salazar: Mr. Garth Dean is a 30-year-old male patient with a past medical history hypertension migraines and gastric ulcer who presents to the ER with complaints of chest pain headache and exertional dyspnea. The patient states that he previously been diagnosed with hypertension and was started on lisinopril at 10 mg that was to be increased to 20 mg to which the patient developed the adverse reaction dry cough. Patient has lost his health insurance and could not afford the medications and has been without his medication for a few months.. Additionally the patient has a history of migraine headaches for which take Imitrex and describes having migraine headaches the last few days and severe migraine headache tonight as result nitroglycerin infusion used to control his blood pressure. The patient describes his chest pain as starting 2 days ago and transient located substernal and nonradiating. Today he developed left-sided chest pain towards the lower costal margin and up towards the left shoulder extending around to the back. The pain was progressively worsening and nothing seemed to make it better. Patient denies nausea vomiting, reports photophobia secondary to his migraine and endorses tingling of his lower extremities. He reports no symptoms of fevers or chills has a nasal congestion or sore throat. He has chest pain as described above but denies palpitations. He has exertional dyspnea but no cough wheeze. Denies complaints of abdominal pain and has had no nausea vomiting diarrhea or constipation. He has a history of gastric ulcer but denies hematemesis, hematochezia or melena. On upon arrival to the ER the patient has a temperature of 98.8?, heart rate of 91, blood pressure is 221/134, respirations are 20 and oxygen saturation 97%. Chest x-ray is obtained which finds no acute cardiopulmonary pathology. On laboratory analysis he has white count of 7.1, hemoglobin of 15.7, hematocrit 44.8 and platelets of 248. He has a PT 10.7, INR 0.9 and PTT of 33. His liquids within normal limits and has a BUN of 10 and a creatinine of 0.79. He has a total bilirubin of 0.5, AST 46, ALT of 124 and alkaline phosphatase is 62. Total CK is 109, CK-MB is 0.55 with a CK-MB index is 0.5. His troponin is negative less than 0. 012. The patient was started on nicardipine drip and titrated up with poor blood pressure control prompting the addition of a nitroglycerin infusion. The patient has subsequently developed a severe headache the describes as the worst in his life and his blood pressure dropped into the 90s. Infusions were stopped and the patient was taken urgently for CT scan which showed no bleed. An environmental emergencies assistant consult was obtained by the ER physician who recommended restarting patient on lisinopril 10 mg and adding amlodipine 5 mg and discharge home. The patient still remained symptomatic with continued headache and mental clouding and therefore is admitted to the hospitalist service for hypertensive urgency. Discharge Providers Provider Date of admission: 07/29/20 02:00 Discharge Date: 07/29/20 Primary care physician: Palak Villavicencio Consults: 07/29/20 02:35 Consult to Discharge Planning Routine Comment: 07/29/20 03:50 Consult to Dietitian, Adult Routine Comment: Reason For Exam: Hypertensive urgency,low-sodium heart healthy diet 07/29/20 03:51 Consult to GAS FURNACE INSTALLER - [employer] Specialist Routine Comment: Hypertensive urgency due to lack of meds GAS FURNACE INSTALLER Consult: [facility] Need Discharge provider: Isaias Robledo DO Summary Hospital Course Discharge Diagnosis: 1. Hypertensive urgency, acute, present on admission, active 2. Chest pain, acute, present on admission, resolved 3. Migraine headache, acute, present on admission, active Hospital Course: Grath Dean is a 30-year-old male with a past medical history of hypertension, migraines, and prior gastric ulcer who presented to the ER with hypertensive urgency, versus possible emergency. He was found have a blood pressure of 221/134. The patient had been off of his chronic medications after losing his health insurance and being unable to see a physician. He was in the emergency room started on a nicardipine infusion with minimal improvement, subsequently nitro was added with a precipitous drop in his blood pressure and a migraine headache as result. Infusions were stopped at that point. He had previously been taking lisinopril, but began developing a cough so this medication was changed to losartan 25 mg daily and amlodipine 5 mg daily was added. He was controlled on this regimen and virtually normotensive. He had no recurrence of chest pain, his EKG was unremarkable, troponins were negative, and telemetry was also unremarkable. He was discharged home with 6 months of blood pressure medications to try and give him ample time to follow-up with a primary care provider, which she will need to reestablish with. Exam Vital Signs (past 8 hours): - 07/29/20 00:20 07/29/20 00:30 07/29/20 00:40 Temperature Pulse Rate 81 76 79 Respiratory Rate 14 17 14 Blood Pressure 164/77 H 163/80 H 158/83 H Pulse Oximetry 95 94 96 07/29/20 00:50 07/29/20 01:00 07/29/20 01:11 Temperature Pulse Rate 74 78 82 Respiratory Rate 14 19 23 Blood Pressure 152/77 H 153/73 H 126/56 L Pulse Oximetry 94 94 96 07/29/20 01:20 07/29/20 01:30 07/29/20 01:40 Temperature Pulse Rate 73 75 69 Respiratory Rate 17 17 19 Blood Pressure 133/61 137/67 141/66 H Pulse Oximetry 92 95 95 07/29/20 01:50 07/29/20 02:00 07/29/20 02:01 Temperature Pulse Rate 67 71 75 Respiratory Rate 16 21 20 Blood Pressure 132/63 156/80 H Pulse Oximetry 94 97 96 07/29/20 02:29 07/29/20 04:00 07/29/20 05:14 Temperature 97.2 F L Pulse Rate 67 61 68 Respiratory Rate 18 18 Blood Pressure 154/88 H 115/72 142/93 H Pulse Oximetry 98 94 97 Oxygen Delivery Method Room Air Oxygen Flow Rate 0 Narrative Exam Narrative: GENERAL APPEARANCE: well developed, well nourished, in no acute distress. HEENT: Normocephalic, photophobia, PERRLA, conjunctiva clear, EOMs intact without nystagmus, no rhinorrhea or epistaxis, mucous membranes are dry and pink. NECK/THYROID: No nuchal rigidity, intact ROM, no JVD, no carotid bruit, no thyromegaly, trachea midline. LYMPH NODES: no cervical or supraclavicular lymphadenopathy. SKIN: [place], warm and dry, no visible lesions, rashes HEART: regular rate and rhythm, S1-S2, no murmur, no rubs or gallops, brisk capillary refill, no edema LUNGS: clear to auscultation bilaterally, no coarseness crackles or wheezing, no cough present CHEST: Symmetrical movement, no accessory muscle use, good tidal volume. ABDOMEN: Soft, no distention, no abdominal tenderness, no guarding or peritoneal signs, no organomegaly, no flank or suprapubic tenderness, active bowel tones. EXTREMITIES: moves all extremities, strength is 5/5 and symmetrical, no deformities or joint effusions. NEUROLOGIC: AAO x3, cranial nerves II-XII grossly intact, sensation intact to light touch, hearing grossly normal to speech. PSYCH: Interactive and cooperative, linear thought process, appropriate with stable behavior Objective Labs Result Diagrams: 07/29/20 06:15 07/29/20 06:15 Labs: Laboratory Results - last 24 hr 07/28/20 07/28/20 07/28/20 20:24 20:24 20:24 WBC 7.1 RBC 4.92 Hgb 15.7 Hct 44.8 MCV 91.1 MCH 32.0 MCHC 35.1 RDW 13.4 Plt Count 248 Neut % (Auto) 46.4 L Lymph % (Auto) 40.1 H [place] % (Auto) 7.4 Eos % (Auto) 5.0 H Baso % (Auto) 1.1 Neut # (Auto) 3300 Lymph # (Auto) 2800 [place] # (Auto) 500 Eos # (Auto) 400 Baso # (Auto) 100 PT 10.7 INR 0.9 APTT 33 D Sodium 137 Potassium 3.9 Chloride 106 Carbon Dioxide 26 BUN 10 Creatinine 0.79 Estimated GFR > 60.0 BUN/Creatinine Ratio 12.7 Glucose 130 H Calcium 9.5 Magnesium Total Bilirubin 0.5 AST 46 ALT 124 H Alkaline Phosphatase 62 Total Creatine Kinase 109 CK-MB (CK-2) 0.55 CK-MB (CK-2) Rel Index 0.5 L Troponin I < 0.012 Total Protein 7.8 Albumin 4.4 Globulin 3.4 Albumin/Globulin Ratio 1.3 Lipase 69 Nasal Screen MRSA (PCR) COVID-19 PCR 07/28/20 07/28/20 07/29/20 20:25 23:55 02:25 WBC RBC Hgb Hct MCV MCH MCHC RDW Plt Count Neut % (Auto) Lymph % (Auto) [place] % (Auto) Eos % (Auto) Baso % (Auto) Neut # (Auto) Lymph # (Auto) [place] # (Auto) Eos # (Auto) Baso # (Auto) PT INR APTT Sodium Potassium Chloride Carbon Dioxide BUN Creatinine Estimated GFR BUN/Creatinine Ratio Glucose Calcium Magnesium Total Bilirubin AST ALT Alkaline Phosphatase Total Creatine Kinase CK-MB (CK-2) CK-MB (CK-2) Rel Index Troponin I < 0.012 Total Protein Albumin Globulin Albumin/Globulin Ratio Lipase Nasal Screen MRSA (PCR) Positive for mrsa H COVID-19 PCR Negative 07/29/20 07/29/20 06:15 06:15 WBC 7.5 RBC 4.53 Hgb 14.5 Hct 41.9 MCV 92.4 MCH 32.0 MCHC 34.6 RDW 13.3 Plt Count 206 Neut % (Auto) 49.3 L Lymph % (Auto) 39.9 [place] % (Auto) 5.5 Eos % (Auto) 4.5 H Baso % (Auto) 0.8 Neut # (Auto) 3700 Lymph # (Auto) 3000 [place] # (Auto) 400 Eos # (Auto) 300 Baso # (Auto) 100 PT INR APTT Sodium 136 L Potassium 4.1 Chloride 105 Carbon Dioxide 28 BUN 10 Creatinine 0.86 Estimated GFR > 60.0 BUN/Creatinine Ratio 11.6 Glucose 102 H Calcium 8.8 Magnesium 2.0 Total Bilirubin 0.4 AST 37 ALT 101 H Alkaline Phosphatase 45 Total Creatine Kinase CK-MB (CK-2) CK-MB (CK-2) Rel Index Troponin I Total Protein 6.7 Albumin 3.8 Globulin 2.9 Albumin/Globulin Ratio 1.3 Lipase Nasal Screen MRSA (PCR) COVID-19 PCR Discharge Plan Discharge Plan Patient Disposition: Home Provider Discharge Comment: You were admitted to the hospital with high blood pressures. You improved after resuming your home medications. I have sent you for 6 more months of medications until you can get back on insurance and establish care with a PCP. Discharge orders & Medications Prescriptions: New amlodipine [Norvasc] 5 mg Tablet 5 mg PO DAILY 90 Days Qty: 90 RF: 1 losartan 25 mg Tablet 25 mg PO BID 90 Days Qty: 180 RF: 1 No Action No Known Home Medications RF: 0 Follow up/Referrals: Palak Villavicencio [Primary Care Provider] - (please schedule a hospital follow up appointment with your primary care doctor following discharge) Diet/Activity/Treatments Diet: Diet as Tolerated and Low-sodium Activity: As tolerated Visit Report/Discharge Packet Instructions: Recommendations to Help Prevent High Blood Pressure, DI for High Blood Pressure Visit Report Forms: Patient Portal/API, Stroke Signs & Symptoms Discharge Data Primary Care Provider: Palak Villavicencio Attending Provider: Isaias Lipscomb [employer] Date/Time: 07/29/20 02:00 Discharges patient from system. Discharge Date/Time: 07/29/20 10:25
[2020-07-29] MEDS: ACETAMINOPHEN 325 MG TABLET 650 MG PO (09:30)
[2020-07-29] MEDS: LOSARTAN 25 MG TABLET PO (09:31)
[2020-07-29] MEDS: AMLODIPINE 5 MG TABLET PO (09:31)
--- NOTE | 2020-07-29 10:20 | PC.NURSE ---
Provided d/c packet and educational material to pt. Fiance at bedside. Reviewed medication regimen, doses, next dose due, timing, side effects. Instructed pt to f/u with PCP when able (pt has no insurance and currently states he can't afford to go to the doctor). Pt states he will obtain a BP cuff and monitor BP at home. Instructed pt and fiance to return to emergency dept with any concerns. Provided stroke, diet, dx, activity, f/u education. Both pt and fiance verbalize understanding of teaching. Pt gathered all belongings. He declined w/c transport to exit. MEN'S CUSTOM HAIR PIECE CONSULTANT escorted pt and fiance to exit with all belongings. Pt walking with steady gait and in no acute distress.
--- NOTE | 2020-07-29 12:01 | CM.DANOTE ---
DCP/Assessment: Reviewed chart. Patient is a 30yr old male admitted to [facility] with elevated BP. PCP listed is Palak Villavicencio in [place] Primary payor is 1) self pay. Received TAR HEATER OPERATOR consult for community needs. Met with patient this AM, he reports that he currently resides in [place] with significant other/Betty. Patient denies any d/c planning needs but is requesting assistance with insurance. TAR HEATER OPERATOR notified admit counselors of request. Patient previously with insurance through Employer but due to pandemic and job loss he was unable to keep benefits. Patient currently receiving unemployment. Patient aware of his ability to reapply for Medicaid and plans to do this soon. Patient has no additional d/c planning needs. P: Home today. DANNA Resendez Discharge Planning/Care Management CM Discharge Assessment Start: 07/29/20 11:57 Freq: Status: Active Protocol: Document 07/29/20 11:58 KJS (Rec: 07/29/20 12:01 [id number]) Discharge Planning Assessment Assigned Leather Polisher DANNA Resendez Contact Information Betty Negron (significant other) [phone] Advance Directives? No Advance Directives on File No History Provided By Patient,Medical Record Prior Living Arrangements Apartment/Condo Household Members none Type of transporation used prior to Drives own vehicle admit Independent with ADL's Yes Is patient alert and oriented? Yes Caregiver for Another No Barriers to Discharge No Comment Patient without insurance, provided with resources and given prescription for 6 months. Discharge Plan Home Whiteboard Updated in Patient Room with Yes name and ext. # of Leather Polisher Review Status In Process Next Review Type Continued Stay Review
== END 2020-07-29 10:25 | disposition home or self-care (01) ==
LOC: ED 07-29 01:55 → ICU 07-29 07:46
PROVIDERS: Admitting Provider Nurse Practitioner Adult Health; Emergency Provider Emergency Medicine; PCP Physician Assistant Medical; Referring Provider Emergency Medicine; Visit Provider Nurse Practitioner Adult Health
DX: I16.0 Hypertensive urgency (principal); R07.9 Chest pain, unspecified; I10 Essential (primary) hypertension; R06.09 Other forms of dyspnea; G43.909 Migraine, unspecified, not intractable, without status migrainosus; Z11.59 Encounter for screening for other viral diseases
CPT/HCPCS: 36415; 70450; 71045; 80053; 82550; 82553; 83690; 83735; 84484; 85025; 85610; 85730; 87635; 87797; 93005; 96365; 96366; 96368; 96372; 96375; 96376; 99285; 99291; 99292; G0378; J2270; J2405; J3030